=== PATIENT | male | born 1965 | race Caucasian/White ===

== ENCOUNTER 2019-06-24 14:31 | Outpatient (CLI) | payer MEDICARE, MEDICAID, SELFPAY ==
[2019-06-24 15:27] LABS: Basophils % 0.2 %; Eosinophils # 0.1 10^3/uL (0.0-0.8); Eosinophils % 1.2 %; Hematocrit 43.1 % (42.0-52.0); Hemoglobin 13.8 g/dL (11.7-16.6); Lymphocytes # 1.4 10^3/uL (0.8-4.8); Lymphocytes % 14.8 %; Mean Corpuscular Hemoglobin 27.8 pg (28.0-34.0); Mean Corpuscular Volume 86.7 fL (80-94); Mean Platelet Volume 10.4 fL (7.4-10.4); Monocytes # 0.9 10^3/uL (0.2-0.9); Monocytes % 8.8 %; Neutrophils # 7.2 10^3/uL (1.8-7.7); Neutrophils % 74.7 %; Nucleated Red Blood Cells % 0 %; Platelet Count 291 10^3/cmm (130-400); Red Blood Count 4.97 10^6/uL (4.1-5.3); Red Cell Distribution Width 15.7 % (12.1-15.1); White Blood Count 9.7 10^3/uL (4.0-10.0)
[2019-06-24 15:50] LABS: Carcinoembryonic Antigen 2.2 ng/mL (0.0-4.7)
[2019-06-24 16:01] LABS: Alanine Aminotransferase 7 U/L (0-41); Albumin Level 3.7 g/dL (3.5-5.2); Alkaline Phosphatase 137 IU/L (40-130); Anion Gap 12.9 (5-19); Aspartate Amino Transferase 12 U/L (0-40); Blood Urea Nitrogen 6 mg/dL (6-20); Calcium 9.3 mg/dL (8.5-10.5); Carbon Dioxide 30 mmol/L (22-29); Chloride 99 mmol/L (98-107); Globulin 3.7 g/dL (1.3-4.6); Glomerular Filtration Rate 117.5 mL/min (90-130); Glucose 101 mg/dL (65-115); Osmolality Calculated 284 mOsm/kg (285-295); Sodium 139 mmol/L (136-145); Total Bilirubin 0.4 mg/dL (0.15-1.2); Total Protein 7.4 g/dL (6.6-8.7)
[2019-06-24 16:13] LABS: Potassium 2.9 mmol/L (3.5-5.1)
--- NOTE | 2019-06-25 07:13 | ONC FU_ITS ---
Dr. Morel Patient Follow-Up Note Patient: Ady Bernardo Unit #: [id number]: 1965 Dicatated By: Ady Morel M.D.Date of Visit:June 24, 2019 Onc Med Follow-up/Prog Note Chief Complaint: Rectal cancer. History of Present Illness: This is a 54 year-old man with low-grade adenocarcinoma of the rectum, by clinical evaluation presumed to be stage IIIB (T3, N1, M0). He was diagnosed with a rectal adenocarcinoma when he was hospitalized with an acute left septic knee arthritis in May 2014. He had severe iron deficiency anemia and hematochezia. Colonoscopy on 05/19/2014 revealed a large pedunculated mass in the posterior wall of the rectum, located at 5 cm from the anal verge. The biopsy showed focal invasive low grade adenocarcinoma arising from the tubulovillous adenoma. A CT of the abdomen and pelvis on 05/16/2014 showed large irregular lesion within the lumen of the rectosigmoid, bronchiectatic changes in the right lower lobe of the lung with a nonspecific 1.6 cm nodule in the right lower lung with small bilateral pleural effusions. There was 2.1 cm simple cyst and additional smaller nonspecific liver lesions. He was first seen by Dr. Harp on 05/26/2014. His weight was stable, although constitutionally he was cachectic. He had a history of congenital lung disease. He never smoked, but continued to have significant ongoing pulmonary complications. Staging PET/CT was not feasible due to lack of medical insurance. CT of the chest showed numerous bilateral nonspecific pulmonary nodules up to 1.2 cm with prominent hilar lymphadenopathy. There was a 2.7 cm hepatic mass, radiographically felt to be probably hemangioma. The lung findings could have been the sequela of his prior lung complications. Colorectal surgery evaluation by Dr. Mora was performed. Endorectal ultrasound on 06/10/2014 was consistent with clinical stage at least III, uT3 uN1 disease with early T3 invasion and one possible enlarged lymph node. Neoadjuvant/ preoperative chemotherapy and radiation with infusional 5-FU for 6 weeks was delivered 06/24/14 -07/28/14. After 2 days of chemotherapy treatment he developed severe hypotension and supraventricular tachycardia requiring hospitalization. Autoimmune thyroiditis with TSH receptor antibodies was identified. Following that, his 5-FU dose was decreased by 20%. He was able to completed all scheduled doses. He completed radiation treatment to 5040 cGy on 08/05/2014. CT of the chest in August 2014 showed improved pulmonary nodules. He established care with green inspector in [place], Dr. Rivera. On 09/26/2014 he underwent an extended low anterior resection with diverting loop ileostomy by Dr. Mora. His surgical pathology showed a large rectal villous adenoma with severe dysplasia, negative margins. A total of 13 lymph nodes harvested were negative for metastatic disease. Thus, he achieved complete pathologic response following neoadjuvant concurrent chemoradiation, Stage 0 (ypT0, ypN0). He was seen in emergency room on 10/11/2014 for diffuse abdominal pain. A CT of abdomen and pelvis showed multiple hepatic cysts and several hemangiomas as well as bilateral bronchiectasis with just elbow pulmonary nodules. Given advanced staging upfront, adjuvant chemotherapy with FOLFOX regimen was recommended. Cycle 1 began on 12/03/14. The treatment was complicated with possible mucositis and burning sensation in the tongue, related to oxaliplatin. The patient received 3 doses of FOLFOX treatment from 12/03/2014 thru 12/31/2014. After that he absolutely declined further treatment. Port-A-Cath was removed, and he was then been followed on observation/expectant management. Surveillance CT of the chest, abdomen, and pelvis on 07/10/2015 showed no evidence of metastatic or recurrent disease. There was findings of COPD, stable hemangioma in the liver, and reversal of the right lower quadrant ostomy. He was last seen for a follow-up visit on 11/30/2015. He appeared stable clinically with no evidence of recurrence of the rectal cancer. 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 I don't have any of those records available. He had a lengthy hospitalization, and he spent 2 weeks at [facility] following discharge. He was able to return home with his sister on 06/30/2018. On 08/30/2018 he presented to the emergency room with shortness of breath, cough, and hemoptysis. CT pulmonary angiogram showed markedly abnormal appearance of the lungs suggestive of a chronic infectious process. There were no pulmonary emboli identified. There were multiple lesions in the liver, a portion of which were likely benign, but with the remainder being indeterminate. He was admitted to [facility] in [place], and he did improve with antibiotic therapy. He had further evaluation with contrast-enhanced CT evidence/pelvis on 10/23/2018. It showed multiple hepatic cavernous hemangiomas, appearance of which was unchanged compared to prior study from 2016. There was no evidence of metastatic disease. With those findings he continued on observation/expectant management. He is seen for a follow-up visit. He has continued regular follow-up care with the green inspector in [place]. He is scheduled to have a repeat chest CT at [facility] in [place] later this week. He has been feeling good generally. His energy has been okay. He says he has normal activity. ECOG score is 0. He has good appetite. He has not had fever. He does have some sweating at night, but that is not new. He has some shortness of breath, but he says his breathing is normal for him. He has constant cough productive of yellow to green sputum. He has not had chest pain or hemoptysis. He has no GI or complaints. He has no significant joint or bone pain. He does not complain of headache or dizziness. He does have numbness/tingling in his hands and feet. Medications: Aspirin 1 Tablet (of 81 mg) Oral daily, dilTIAZem HCl 1 Tablet (of 180 mg) Oral daily, Fludrocortisone Acetate 2 Tablet (of 0.1 mg) Oral daily, Gabapentin 1 Capsule (of 100 mg) Oral t.i.d., methIMAzole 0.5 Tablet (of 5 mg) Oral q 8 hours, Metoprolol Succinate ER 1 Tablet (of 25 mg) Tablet SR 24 HR Oral daily, ProAir HFA Aerosol, solution Inhalation PRN, Senna-S 1 Tablet (of 8.6-50 mg) Oral PRN, Symbicort 1 (160-4.5 mcg/act) Aerosol Inhalation daily Allergies: No Known Allergies. Review of Systems: Constitutional - His energy is OK. He says he has normal activity. His appetite is good. His weight is up a few more pounds. He has some sweating at night. No fever or chills. ECOG score is 0, ENMT - He has a little bit of sinus congestion/drainage. No mouth sores. No sore throat or difficulty swallowing, Hematologic/Lymphatic - He bruises easily, Respiratory - He has some shortness of breath. He has constant cough that produces yellow phlegm. No pleuritic pain or hemoptysis, Cardiovascular - No angina pain. No palpitations, Gastrointestinal - No nausea or vomiting. No heartburn or acid reflux. No diarrhea or constipation. No blood in the stool or black stools, Genitourinary (M) - No dysuria or hematuria. No urinary frequency. No urgency or incontinence, Musculoskeletal - No joint or bone pain, Integumentary - No skin complications, Neurologic - No headache or dizziness. He has numbness and tingling in his hands and feet, Psychiatric - No anxiety or depression. No insomnia. Vital Signs: Performed on June 24, 2019 15:43 Height - 71.00 in Weight - 137.2 lbs (HIGH) BSA - 1.80 sq.m BMI - 19.14 Temperature - 98.9 F (HIGH) Pulse - 64 /min Respiration - 18 /min BP - 163/96 mm(hg) (HIGH) O2 Sat - 97 % Pain - 0 Physical Examination: Constitutional - He looks pretty good generally, Eyes - Sclerae nonicteric. Conjunctivae clear, ENMT - No lesions noted in the oral cavity, Hematologic/Lymphatic - No cervical, clavicular, or axillary adenopathy, Respiratory - Lungs sound clear with diminished air movement bilaterally, Cardiovascular - Heart rhythm is regular. There is a II/ systolic murmur. There is no gallop or rub noted, Abdomen - Soft. Liver and spleen are not enlarged. There is no abdominal mass or ascites noted and there is no inguinal adenopathy, Extremities - No edema, Neurologic - No focal neurologic deficits noted. Lab/Imaging: Test performed on June 24, 2019 14:50 Sodium 139 mmol/L Potassium 2.9 mmol/L Chloride 99 mmol/L CO2 30 mmol/L Anion Gap 12.9 BUN 6 mg/dL Creatinine 0.7 mg/dL Cr Clearance (Est) 106.1900 mL/min eGFR 117.5 mL/min Glucose 101 mg/dL Calcium 9.3 mg/dL Protein, Total 7.4 g/dL Albumin 3.7 g/dL Globulin 3.7 g/dL Bilirubin, Total 0.4 mg/dL ALT (SGPT) 7 U/L AST (SGOT) 12 U/L Alkaline Phosphatase 137 IU/L WBC 9.7 10 3/uL RBC 4.97 10 6/uL HGB 13.8 g/dL HCT 43.1 % MCV 86.7 fL MCH 27.8 pg MCHC 32.0 g/dL RDW 15.7 % Platelet Count 291 10 3/cmm MPV 10.4 fL Neutrophils 7.2 10 3/uL Lymphocytes 1.4 10 3/uL Monocytes 0.9 10 3/uL Eosinophils 0.1 10 3/uL Basophils 0.0 10 3/uL Neutrophil % 74.7 % Lymphocyte % 14.8 % Monocyte % 8.8 % Eosinophil % 1.2 % Basophils % 0.2 % CEA 2.2 ng/mL Impression: 1. Patient with low-grade adenocarcinoma of the rectum, initially diagnosed in May 2014. By clinical evaluation, his disease was suspected to be stage IIIB (T3, N1, M0). 2. He was given neoadjuvant chemoradiation utilizing infusional 5-FU, completed on 08/05/2014 to a total radiation dose of 5040 cGy. 3. He underwent extended low anterior resection with diverting loop ileostomy on 09/26/2014. Pathology showed large villous adenoma with severe dysplasia and no invasive carcinoma, thus posttreatment stage 0 (ypT0, ypN0). 4. Postoperative adjuvant chemotherapy with modified FOLFOX was attempted and stopped by the patient after 3 cycles due to multiple toxicities. He has since had remained on observation/expectant management. His other medical illnesses include: 5. COPD of unclear etiology, as he is a nonsmoker and he had normal alpha-1 antitrypsin level. 6. He has multiple pulmonary nodules. 7. Autoimmune thyroiditis. 8. Hypertension. During follow-up he continued to have somewhat marginal performance status. 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 His clinical course there apparently was also complicated by epilepsy. He also had suspected cardiovascular disease. He had been showing gradual recovery, but in the meantime he was admitted to the hospital in August [address] pulmonary angiogram at that time showed markedly abnormal appearance of the lungs which was felt to be suggestive of a chronic infectious process. There was no evidence of metastatic disease. His CT abdomen/pelvis on 10/23/2018 also showed no evidence of metastatic disease. He had gradual recovery following his hospitalization in April and the subsequent illness in August. He has continued followup with a green inspector in [place]. Overall, he appears to be doing well clinically. Thus far there is been no evidence of recurrence of the rectal cancer. Plan: He continues on observation/expectant management. I will see him again with surveillance CT of the abdomen/pelvis in 6 months. Signed By: Ady Morel M.D. <<Signature on File>>
== END 2019-06-24 14:32 | disposition home or self-care (01) ==
PROVIDERS: PCP Family Medicine; Visit Provider Internal Medicine Medical Oncology
DX: C20 Malignant neoplasm of rectum (principal)
CPT/HCPCS: 36415; 80053; 82378; 85025; G0463

== ENCOUNTER 2019-12-17 10:59 | Emergency (ER) | payer OTHER, MEDICAID, SELFPAY ==
[2019-12-17] VITALS (11 sets, daily range): BP systolic 95–156; BP diastolic 63–104; PULSE 55–69; RESP 16–18; TEMP 36.8; O2SAT 97–100; BMI 22.1
--- NOTE | 2019-12-17 11:42 | XR_ITS ---
WS: [id number] Portable AP upright chest, 12/17/2019 Clinical Data: cough Comparison: PA and lateral chest, 08/30/2018. Findings: No nodules, masses or effusions are seen. There is a patchy opacity overlying the midportio n of the left diaphragm which could represent atelectasis or minimal pneumonia. The diaphragms are fl attened. There is right upper lobe scarring with pleural thickening unchanged. The heart is slightly enlarged The pulmonary vascularity is not increased. No pneumothorax is seen. XR/XR chest 1V portable [id number] Impression: 1. Minimal patchy opacity overlying the left diaphragm which could represent pn eumonia or atelectasis. 2. Cardiomegaly and hyperinflation.
--- NOTE | 2019-12-17 12:11 | ECG_ITS ---
[facility] Test Date: 2019-12-17 Pat Name: Ady Bernardo Department: Room: Gender: Male Ed Transporter: : 1965 Requested By: Salina Medeiros Order Number: [id number] Joanne MD: Mariah Castillo M.D. Measurements Intervals [place] Rate: 61 P: 85 ID: 160 QRS: 89 QRSD: 118 T: 74 QT: 422 QTc: 427 Interpretive Statements SINUS RHYTHM WITH SINUS ARRHYTHMIA MODERATE INTRAVENTRICULAR CONDUCTION DELAY [110+ ms QRS DURATION] Compared to ECG 01/26/2017 11:48:07 Intraventricular conduction delay now present Sinus tachycardia no longer present Ventricular premature complex(es) no longer present Atrial abnormality no longer present Electronically Signed On 12-17-2019 20:18:57 MAILROOM ASSISTANT by Mariah Castillo M.D. [id number]
--- NOTE | 2019-12-17 12:14 | CT_ITS ---
WS: [id number] CTA OF THE CHEST WITH PULMONARY EMBOLISM PROTOCOL TECHNIQUE: High-resolution contrast enhanced CTA of the chest with coronal and sagittal reformatted i mages with pulmonary embolism protocol. MIP images are also reviewed. CLINICAL INFORMATION: sob COMPARISON: CT November 13, 2018 DLP: 569.[address] scans at [facility] use at least one of these dose optimization techniques: automat ed exposure control; mA and/or kV adjustment per patient size (includes targeted exams where dose is matched to clinical indication); or iterative reconstruction. FINDINGS: Diffuse abnormal dilatation of the thoracic esophagus with air-fluid levels and high attenu ation presumed blood products. This is distended from the thoracic inlet to the GE junction. Focal na rrowing with peripheral nodular thickening at the GE junction. Heterogeneous blood products or soft t issue thickening involving the mid and distal esophagus suspicious for neoplasm. Recommend further ev aluation with endoscopy. Small amount of circumferential fluid involving the posterior mediastinum ab out the mid and distal esophagus suspicious for contained perforation. Moderate chronic emphysematous changes with periseptal emphysema. Proximal main pulmonary arteries ar e patent. Normal segmental and subsegmental pulmonary arteries. No evidence of pulmonary embolus. Diffuse mild bronchial wall thickening and bronchiectasis more prominent in the mid and lower lungs b ilaterally. Moderate periseptal emphysema with pleural and parenchymal fibrosis. This is similar to t prior examination. No acute pulmonary infiltrates. Right hepatic cyst measuring 4.6 x 4.6 CM. Additional low-attenuation lesion right hepatic lobe measu ring 2.7 cm appears stable since November 13, 2018. This is compatible with cavernous hemangioma on t he prior CT abdomen pelvis with contrast 019. Additional smaller hepatic cysts. CT/CT angio chest PE protcl [id number] IMPRESSION: 1. No evidence of pulmonary embolus. 2. Diffuse thickening with prominent dilatation of the thoracic esophagus with air-fluid levels. Blood products within the mid and distal esophagus with nodu lar thickening at the GE junction suspicious for neoplasm. Findings can be furt her evaluated with endoscopy. 3. Fluid about the mid and distal esophagus and at the GE junction suspicious for contained perforation. 4. Periseptal emphysematous change with diffuse bronchiectasis more prominent in the mid and lower lungs bilaterally. Scattered areas of fibrosis similar to the prior examination. 5. No acute-appearing pulmonary infiltrates. 6. Stable partially visualized hepatic cysts and right cavernous hemangioma. Notified Salina Medeiros MD at 12/17/2019 1:39 PM.
--- NOTE | 2019-12-17 12:23 | ED_ITS ---
HPI - General Adult General: Chief complaint: Nausea/Vomiting/Diarrhea Stated complaint: Coughing up blood Time Seen by Provider: 12/17/19 12:07 Source: patient Mode of arrival: ambulatory Limitations: no limitations History of Present Illness: HPI narrative: 54-year-old male who has a history of colon cancer is in remission. He also has history of COPD. He states that he started having a cough today and started having hemoptysis. Is mainly blood- streaked. Denies coughing up any clots. He denies any fever. He has had some slight shortness of breath. He denies any worsening or improving factors. Denies any abdominal pain. Associated symptoms: Deny chest pain, headache(s), nausea, rash or vomiting Review of Systems Const: Denies: fever(s), chills, body aches or change in appetite Eyes: Denies: blurry vision or eye discomfort ENMT: Denies: throat pain or dental pain Card: Denies: chest pain Resp: Reports: productive cough and hemoptysis GI: Denies: abdominal pain, nausea, vomiting or diarrhea : Denies: dysuria Musc: Denies: neck pain or back pain Skin/Breast: Denies: rash Neuro: Denies: headache(s) Psych: Denies: depression Trevon/Lymph: Denies: easy bruising All/Imm: Denies: urticaria PFSH ED PFSH: Medical History Adrenal insufficiency Atrial fibrillation COPD (chronic obstructive pulmonary disease) Essential hypertension GBS (Guillain [place] syndrome) H/O supraventricular tachycardia Rectal cancer Family History Mother Cancer Father Diabetes Other Hypertension Social History Smoking and tobacco status: never smoked Alcohol intake: never Marital status: Current occupational status: disabled Physical Exam Const: COMMON NORMALS: no acute distress and patient oriented x3 GENERAL APPEARANCE: ill appearing HENMT: COMMON NORMALS: normocephalic and atraumatic HEAD & SCALP: normocephalic and atraumatic Eye: COMMON NORMALS: Equal, round and reactive pupils present and EOMs intact bilaterally PUPIL: Yes Equal, round and reactive pupils present Neck/C-Spine: COMMON NORMALS: full ROM and supple Chest: COMMONS NORMALS: normal inspection of the chest and normal palpation of entire chest wall Resp: COMMON NORMALS: normal respiratory effort, No retractions, No use of accessory muscles and clear to auscultation bilaterally AUSCULTATION: clear to auscultation bilaterally Cardio: COMMON NORMALS: regular rate, regular rhythm and No murmurs present (Cardio) RATE: regular rate RHYTHM: regular rhythm GI: COMMON NORMALS: Normal to inspection, nondistended, normoactive bowel sounds present, Soft to palpation, non-tender and no masses PALPATION: Yes Soft to palpation Extremity: COMMON NORMALS: normal to inspection and full ROM Neuro: COMMON NORMALS: patient oriented x3, moves all extremities and no focal motor deficits Psych: COMMON NORMALS: mental status grossly normal, Normal thought process present and cooperative THOUGHT PROCESS: Normal thought process present Skin: COMMON NORMALS: no rashes or lesions noted and no wounds GENERAL SKIN EXAM: no rashes or lesions noted Course Vital Signs: Vital signs: Vital Signs Temperature 98.2 F 12/17/19 11:13 Pulse Rate 56 L 12/17/19 19:00 Respiratory Rate 16 12/17/19 19:00 Blood Pressure 100/63 12/17/19 19:00 Pulse Oximetry 100 12/17/19 19:00 MDM - General Adult MDM Narrative: Medical decision making narrative: Patient presents here with hematemesis. Patient did have one episode of large amount of vomiting blood here. CT scan showed possible esophageal cancer with contained perforation. He is no longer had any more vomiting here and his hemoglobin stable and he is hemodynamically stable as well. I spoke to CT surgeon at [facility] who is excepted patient there. Pending transfer awaiting for bed which could takes quite some time. Lab Data: Labs: Lab Results 12/17/19 12/17/19 12/17/19 Range/Units 12:40 12:40 12:40 WBC 8.6 (4.0-10.0) 10^3/ uL RBC 5.24 (4.1-5.3) 10^6/u L Hgb 15.4 (11.7-16.6) g/dL Hct 48.1 (42.0-52.0) % MCV 91.8 (80-94) fL MCH 29.4 (28.0-34.0) pg MCHC 32.0 (30.0-36.0) g/dL RDW 14.6 (12.1-15.1) % Plt Count 258 (130-400) 10^3/c mm MPV 10.2 (7.4-10.4) fL Neut % (Auto) 87.3 % Lymph % (Auto) 7.2 % Leake % (Auto) 2.9 % Eos % (Auto) 1.9 % Baso % (Auto) 0.2 % Neut # (Auto) 7.51 (1.8-7.7) 10^3/u L Lymph # (Auto) 0.6 L (0.8-4.8) 10^3/u L Leake # (Auto) 0.3 (0.2-0.9) 10^3/u L Eos # (Auto) 0.2 (0.0-0.8) 10^3/u L Baso # (Auto) 0.0 (0.0-0.1) 10^3/u L Nucleated RBC % (a uto) 0 % Nucleated RBCs # 0.0 /100WBC PT 13.40 (12.1-14.9) SECO NDS INR 0.99 (0.8-1.2) Sodium 138 (136-145) mmol/L Potassium 3.7 (3.5-5.1) mmol/L Chloride 101 (98-107) mmol/L Carbon Dioxide 28 (22-29) mmol/L Anion Gap 12.7 (5-19) BUN 7 (6-20) mg/dL Creatinine 0.8 (0.7-1.2) mg/dL GFR Calculation 100.7 (90-130) mL/min Glucose 97 (65-115) mg/dL Calculated Osmolal ity 284 L (285-295) mOsm/k g Calcium 9.0 (8.5-10.5) mg/dL Total Bilirubin 0.6 (0.15-1.2) mg/dL AST 13 (0-40) U/L ALT 8 (0-41) U/L Alkaline Phosphata se 149 H (40-130) IU/L Total Protein 7.5 (6.6-8.7) g/dL Albumin 4.2 (3.5-5.2) g/dL Globulin 3.3 (1.3-4.6) g/dL Blood Type Rho(D) Type Antibody Screen 12/17/19 12/17/19 Range/Units 13:50 16:35 WBC (4.0-10.0) 10^3/ uL RBC (4.1-5.3) 10^6/u L Hgb 14.5 (11.7-16.6) g/dL Hct 45.2 (42.0-52.0) % MCV (80-94) fL MCH (28.0-34.0) pg MCHC (30.0-36.0) g/dL RDW (12.1-15.1) % Plt Count (130-400) 10^3/c mm MPV (7.4-10.4) fL Neut % (Auto) % Lymph % (Auto) % Leake % (Auto) % Eos % (Auto) % Baso % (Auto) % Neut # (Auto) (1.8-7.7) 10^3/u L Lymph # (Auto) (0.8-4.8) 10^3/u L Leake # (Auto) (0.2-0.9) 10^3/u L Eos # (Auto) (0.0-0.8) 10^3/u L Baso # (Auto) (0.0-0.1) 10^3/u L Nucleated RBC % (a uto) % Nucleated RBCs # /100WBC PT (12.1-14.9) SECO NDS INR (0.8-1.2) Sodium (136-145) mmol/L Potassium (3.5-5.1) mmol/L Chloride (98-107) mmol/L Carbon Dioxide (22-29) mmol/L Anion Gap (5-19) BUN (6-20) mg/dL Creatinine (0.7-1.2) mg/dL GFR Calculation (90-130) mL/min Glucose (65-115) mg/dL Calculated Osmolal ity (285-295) mOsm/k g Calcium (8.5-10.5) mg/dL Total Bilirubin (0.15-1.2) mg/dL AST (0-40) U/L ALT (0-41) U/L Alkaline Phosphata se (40-130) IU/L Total Protein (6.6-8.7) g/dL Albumin (3.5-5.2) g/dL Globulin (1.3-4.6) g/dL Blood Type O Positive Rho(D) Type Positive Antibody Screen Negative Imaging Data^: CXR: Radiologist's impression: [address] [address] XRay Report Signed Patient: Ady Bernardo Unit #: [id number] : 1965 Age/Sex: 54 / M ADM Date: 12/17/19 Loc: ER Room/Bed: Attending Dr: Ordering Provider/Ordering MD: Salina Medeiros MD Date of Service: 12/17/19 Procedure(s): XR chest 1V portable [id number] Accession Number(s): [id number] Report Number: [id number] WS: [id number] Portable AP upright chest, 12/17/2019 Clinical Data: cough Comparison: PA and lateral chest, 08/30/2018. Findings: No nodules, masses or effusions are seen. There is a patchy opacity overlying the midportion of the left diaphragm which could represent atelectasis or minimal pneumonia. The diaphragms are flattened. There is right upper lobe scarring with pleural thickening unchanged. The heart is slightly enlarged The pulmonary vascularity is not increased. No p neumothorax is seen. XR/XR chest 1V portable [id number] Impression: 1. Minimal patchy opacity overlying the left diaphragm which could represent pneumonia or atelectasis. 2. Cardiomegaly and hyperinflation. CT Chest: Attestation: I personally reviewed and interpreted this imaging study as follows: Radiologist's impression: [address] [address] [address] Scan Report Signed Patient: Ady Bernardo Unit #: [id number] : 1965 Age/Sex: 54 / M ADM Date: 12/17/19 Loc: ER Room/Bed: Attending Dr: Ordering Provider/Ordering MD: Salina Medeiros MD Date of Service: 12/17/19 Procedure(s): CT angio chest PE protcl [id number] Accession Number(s): [id number] Report Number: [id number] WS: [id number] CTA OF THE CHEST WITH PULMONARY EMBOLISM PROTOCOL TECHNIQUE: High-resolution contrast enhanced CTA of the chest with coronal and sagittal reformatted images with pulmonary embolism protocol. MIP images are also reviewed. CLINICAL INFORMATION: sob COMPARISON: CT November 13, 2018 DLP: 569.[address] scans at [facility] use at least one of these dose optimization techniques: automated exposure control; mA and/or kV adjustment per patient size (includes targeted exams where dose is matched to clinical indication); or iterative reconstruction. FINDINGS: Diffuse abnormal dilatation of the thoracic esophagus with air-fluid levels and high attenuation presumed blood products. This is distended from the thoracic inlet to the GE junction. Focal narrowing with peripheral nodular thickening at the GE junction. H eterogeneous blood products or soft tissue thickening involving the mid and distal esophagus suspicious for neoplasm. Recommend further evaluation with endoscopy. Small amount of circumferential fluid involving the posterior mediastinum about the mid and distal esophagus suspicious for contained perforation. Moderate chronic emphysematous changes with periseptal emphysema. Proximal main pulmonary arteries are patent. Normal segmental and subsegmental pulmonary arteries. No evidence of pulmonary embolus. Diffuse mild bronchial wall thickening and bronchiectasis more prominent in the mid and lower lungs bilaterally. Moderate periseptal emphysema with pleural and parenchymal fibrosis. This is similar to the prior examination. No acute pulmonary infiltrates. Right hepatic cyst measuring 4.6 x 4.6 CM. Additional low-attenuation lesion right hepatic lobe measuring 2.7 cm appears stable since November 13, 2018. This is compatible with cavernous hemangioma on the prior CT abdomen pelvis with contrast . Additional smaller hepatic cysts. CT/CT angio chest PE protcl [id number] IMPRESSION: 1. No evidence of pulmonary embolus. 2. Diffuse thickening with prominent dilatation of the thoracic esophagus with air-fluid levels. Blood products within the mid and distal esophagus with nodular thickening at the GE junction suspicious for neoplasm. Findings can be further evaluated with endoscopy. 3. Fluid about the mid and distal esophagus and at the GE junction suspicious for contained perforation. 4. Periseptal emphysematous change with diffuse bronchiectasis more prominent in the mid and lower lungs bilaterally. Scattered areas of fibrosis similar to the prior examination. 5. No acute-appearing pulmonary infiltrates. 6. Stable partially visualized hepatic cysts and right cavernous hemangioma. EKG Data^: EKG 1: Attestation: I personally reviewed and interpreted this EKG as follows: EKG interpretation date: 12/17/19 EKG interpretation time: 12:40 Interpretation: nsr hr [address] or t wave abnormalities qrs 118 qtc 425 Computer generated interpretation: Chest X-Ray 12/17/19 11:42 Impression: 1. Minimal patchy opacity overlying the left diaphragm which could represent pneumonia or atelectasis. 2. Cardiomegaly and hyperinflation. Chest CTA 12/17/19 12:14 IMPRESSION: 1. No evidence of pulmonary embolus. 2. Diffuse thickening with prominent dilatation of the thoracic esophagus with air-fluid levels. Blood products within the mid and distal esophagus with nodular thickening at the GE junction suspicious for neoplasm. Findings can be further evaluated with endoscopy. 3. Fluid about the mid and distal esophagus and at the GE junction suspicious for contained perforation. 4. Periseptal emphysematous change with diffuse bronchiectasis more prominent in the mid and lower lungs bilaterally. Scattered areas of fibrosis similar to the prior examination. 5. No acute-appearing pulmonary infiltrates. 6. Stable partially visualized hepatic cysts and right cavernous hemangioma. Notified Salina Medeiros MD at 12/17/2019 1:39 PM. Critical Care Time Critical Care Time: Critical Care Time: Yes Total Critical Care Time: 35 Attestation: This case had a high probability of a clinically significant, sudden, or life t hreatening deterioration of this patient's condition which required my full and direct attention, intervention and personal management. Discharge Plan Discharge Patient Disposition: Xfer Other Clinical Impression: Hematemesis Condition: Stable Discharge Orders: Transfer Out of Facility (Order); Ordered 12/17/19 Ordered By: Salina Medeiros Referrals: Nellie Kay MD [Primary Care Provider] - Coding Level of Care Code ED Film Inspector for Chg Fwd Exam Comprehensive
[2019-12-17] MEDS: iohexol 350 mg/mL 100 mL Btl IV (13:09)
[2019-12-17 13:26] LABS: Basophils % 0.2 %; Eosinophils # 0.2 10^3/uL (0.0-0.8); Eosinophils % 1.9 %; Hematocrit 48.1 % (42.0-52.0); Hemoglobin 15.4 g/dL (11.7-16.6); Lymphocytes # 0.6 10^3/uL (0.8-4.8); Lymphocytes % 7.2 %; Mean Corpuscular Hemoglobin 29.4 pg (28.0-34.0); Mean Corpuscular Volume 91.8 fL (80-94); Mean Platelet Volume 10.2 fL (7.4-10.4); Monocytes # 0.3 10^3/uL (0.2-0.9); Monocytes % 2.9 %; Neutrophils # 7.51 10^3/uL (1.8-7.7); Neutrophils % 87.3 %; Nucleated Red Blood Cells % 0 %; Platelet Count 258 10^3/cmm (130-400); Red Blood Count 5.24 10^6/uL (4.1-5.3); Red Cell Distribution Width 14.6 % (12.1-15.1); White Blood Count 8.6 10^3/uL (4.0-10.0)
[2019-12-17] MEDS: ondansetron 2 mg/ML SDV 2 mL 4 MG IVP (13:34)
[2019-12-17 13:48] LABS: INR 0.99 (0.8-1.2)
[2019-12-17 13:55] LABS: Alanine Aminotransferase 8 U/L (0-41); Albumin Level 4.2 g/dL (3.5-5.2); Alkaline Phosphatase 149 IU/L (40-130); Anion Gap 12.7 (5-19); Aspartate Amino Transferase 13 U/L (0-40); Blood Urea Nitrogen 7 mg/dL (6-20); Carbon Dioxide 28 mmol/L (22-29); Chloride 101 mmol/L (98-107); Globulin 3.3 g/dL (1.3-4.6); Glomerular Filtration Rate 100.7 mL/min (90-130); Glucose 97 mg/dL (65-115); Osmolality Calculated 284 mOsm/kg (285-295); Potassium 3.7 mmol/L (3.5-5.1); Sodium 138 mmol/L (136-145); Total Bilirubin 0.6 mg/dL (0.15-1.2); Total Protein 7.5 g/dL (6.6-8.7)
[2019-12-17] MEDS: pantoprazole 40 mg SDV 80 MG IVP (14:04)
[2019-12-17] MEDS: pantoprazole 40 MG in sodium chloride 0.9% (plus) 100 ML 20 MG IV ×2 (14:04→18:40)
[2019-12-17] MEDS: ipratropium-albuterol 3 mL Neb INHALATION (15:12)
[2019-12-17] MEDS: diphenhydrAMINE 50 mg/mL SDV 1mL IVP (16:38)
[2019-12-17] MEDS: metoclopramide 5 mg/mL SDV 2 mL 10 MG IVP (16:38)
[2019-12-17 16:42] LABS: Hematocrit 45.2 % (42.0-52.0); Hemoglobin 14.5 g/dL (11.7-16.6)
[2019-12-17 23:47] LABS: Hematocrit 42.2 % (42.0-52.0); Hemoglobin 13.6 g/dL (11.7-16.6)
[2019-12-17] MEDS: piperacillin-tazobactam 3.375 GM in sodium chloride 0.9% (plus) 50 ML IV (23:53)
[2019-12-18] VITALS (9 sets, daily range): BP systolic 96–148; BP diastolic 59–89; PULSE 47–99; RESP 15–21; O2SAT 98–100
[2019-12-18] MEDS: piperacillin-tazobactam 3.375 GM in sodium chloride 0.9% (plus) 50 ML IV (06:24)
[2019-12-18] MEDS: pantoprazole 40 MG in sodium chloride 0.9% (plus) 100 ML 20 MG IV (06:36)
[2019-12-18 08:54] LABS: Basophils % 0.1 %; Hematocrit 42.5 % (42.0-52.0); Hemoglobin 13.6 g/dL (11.7-16.6); Lymphocytes # 0.8 10^3/uL (0.8-4.8); Lymphocytes % 8.2 %; Mean Corpuscular Hemoglobin 30.1 pg (28.0-34.0); Monocytes # 0.4 10^3/uL (0.2-0.9); Monocytes % 3.9 %; Neutrophils # 8.36 10^3/uL (1.8-7.7); Neutrophils % 87.4 %; Nucleated Red Blood Cells % 0 %; Platelet Count 278 10^3/cmm (130-400); Red Blood Count 4.52 10^6/uL (4.1-5.3); Red Cell Distribution Width 14.7 % (12.1-15.1); White Blood Count 9.6 10^3/uL (4.0-10.0)
== END 2019-12-18 08:35 | disposition other institution (70) ==
PROVIDERS: Emergency Medicine; Emergency Provider Emergency Medicine; PCP Family Medicine
DX: K92.0 Hematemesis (principal); I48.91 Unspecified atrial fibrillation; J44.9 Chronic obstructive pulmonary disease, unspecified; I10 Essential (primary) hypertension; Z85.048 Personal history of other malignant neoplasm of rectum, rectosigmoid junction, and anus
CPT/HCPCS: 12345; 71045; 71275; 80053; 85014; 85018; 85025; 85610; 86850; 86900; 93005; 94640; 96365; 96366; 96367; 96375; 99284; 99285; C9113; J1200; J2405; J2543; J2765; J2930; Q9967

== ENCOUNTER 2019-12-31 08:27 | Outpatient (CLI) | payer MEDICARE, MEDICAID, SELFPAY ==
--- NOTE | 2019-12-31 08:30 | CT_ITS ---
WS: [id number] Exam: CT abdomen pelvis w con* [id number] Date/Time of Exam: 12/31/2019 8:30 AM Reason For Exam: RECTAL CANCER DLP: 1049.[address] scans at [facility] use at least one of these dose optimization techniques: automat ed exposure control; mA and/or kV adjustment per patient size (includes targeted exams where dose is matched to clinical indication); or iterative reconstruction. Compared to prior study 10/23/2018. Lower lobe emphysematous changes and bronchiectasis noted. There may be some infiltrate in the left l ower lobe and/or atelectasis. Mild cardiac enlargement. A 5.6 cm cyst is noted in the right lobe of t he liver which is slightly more prominent than noted on the previous exam. There are also several sta ble appearing hepatic hemangiomas identified. Additional smaller cysts are seen in the left lobe of t he liver. The spleen and pancreas appear normal. The abdominal aorta is normal in caliber. The stomac h is unremarkable. Normal kidneys and adrenal glands. The portal vein and IVC are patent. No lymphade nopathy. No calcified stones in the gallbladder. Small bowel loops are normal in caliber. No sign of acute appendix. The remaining large bowel is unremarkable. No mass or adenopathy in the pelvis. The u reters are patent into the bladder. The urinary bladder is unremarkable as visualized. No destructive bone lesions. No significant abdominal wall defects. CT/CT abdomen pelvis w con* [id number] IMPRESSION: 1. No new abdominal mass or lymphadenopathy. 2. Stable appearing hepatic hemangiomas and cysts. 3. Lower lobe emphysematous changes and bronchiectasis most marked in the left lower lobe. There may be some infiltrate in the left lower lobe.
[2019-12-31] MEDS: iohexol 300 mg/mL 50 mL Btl PO (08:42)
[2019-12-31] MEDS: iohexol 300 mg/mL 100 mL Btl IV (10:06)
== END 2019-12-31 08:28 | disposition home or self-care (01) ==
PROVIDERS: PCP Family Medicine; Visit Provider Internal Medicine Medical Oncology
DX: C20 Malignant neoplasm of rectum (principal); D18.09 Hemangioma of other sites; J47.9 Bronchiectasis, uncomplicated
CPT/HCPCS: 74177; Q9967

== ENCOUNTER 2020-01-02 12:13 | Outpatient (CLI) | payer MEDICARE, MEDICAID, SELFPAY ==
[2020-01-02 13:10] LABS: Basophils % 0.2 %; Eosinophils # 0.4 10^3/uL (0.0-0.8); Eosinophils % 2.9 %; Hematocrit 43.5 % (42.0-52.0); Hemoglobin 14.1 g/dL (11.7-16.6); Lymphocytes # 0.8 10^3/uL (0.8-4.8); Lymphocytes % 6.2 %; Mean Corpuscular HGB Conc 32.4 g/dL (30.0-36.0); Mean Corpuscular Hemoglobin 29.8 pg (28.0-34.0); Mean Platelet Volume 9.8 fL (7.4-10.4); Monocytes # 0.7 10^3/uL (0.2-0.9); Monocytes % 5.8 %; Neutrophils # 10.28 10^3/uL (1.8-7.7); Neutrophils % 84.5 %; Nucleated Red Blood Cells % 0 %; Platelet Count 207 10^3/cmm (130-400); Red Blood Count 4.73 10^6/uL (4.1-5.3); Red Cell Distribution Width 14.4 % (12.1-15.1); White Blood Count 12.2 10^3/uL (4.0-10.0)
[2020-01-02 13:53] LABS: Carcinoembryonic Antigen 1.9 ng/mL (0.0-4.7)
[2020-01-02 14:14] LABS: Alanine Aminotransferase 8 U/L (0-41); Albumin Level 3.9 g/dL (3.5-5.2); Alkaline Phosphatase 132 IU/L (40-130); Anion Gap 14.1 (5-19); Aspartate Amino Transferase 11 U/L (0-40); Blood Urea Nitrogen 3 mg/dL (6-20); Calcium 8.6 mg/dL (8.5-10.5); Carbon Dioxide 25 mmol/L (22-29); Chloride 104 mmol/L (98-107); Globulin 2.8 g/dL (1.3-4.6); Glomerular Filtration Rate 117.5 mL/min (90-130); Glucose 86 mg/dL (65-115); Osmolality Calculated 286 mOsm/kg (285-295); Potassium 3.1 mmol/L (3.5-5.1); Sodium 140 mmol/L (136-145); Total Bilirubin 0.5 mg/dL (0.15-1.2); Total Protein 6.7 g/dL (6.6-8.7)
--- NOTE | 2020-01-05 13:35 | ONC FU_ITS ---
Dr. Morel Patient Follow-Up Note Patient: Ady Bernardo Unit #: [id number]: [id number] Dicatated By: Ady Morel M.D.Date of Visit:Jan 02, 2020 Onc Med Follow-up/Prog Note Chief Complaint: Rectal cancer. History of Present Illness: This is a 54 year-old man with low-grade adenocarcinoma of the rectum, by clinical evaluation presumed to be stage IIIB (T3, N1, M0). He was diagnosed with a rectal adenocarcinoma when he was hospitalized with an acute left septic knee arthritis in May 2014. He had severe iron deficiency anemia and hematochezia. Colonoscopy on 05/19/2014 revealed a large pedunculated mass in the posterior wall of the rectum, located at 5 cm from the anal verge. The biopsy showed focal invasive low grade adenocarcinoma arising from the tubulovillous adenoma. A CT of the abdomen and pelvis on 05/16/2014 showed large irregular lesion within the lumen of the rectosigmoid, bronchiectatic changes in the right lower lobe of the lung with a nonspecific 1.6 cm nodule in the right lower lung with small bilateral pleural effusions. There was 2.1 cm simple cyst and additional smaller nonspecific liver lesions. He was first seen by Dr. Harp on 05/26/2014. His weight was stable, although constitutionally he was cachectic. He had a history of congenital lung disease. He never smoked, but continued to have significant ongoing pulmonary complications. Staging PET/CT was not feasible due to lack of medical insurance. CT of the chest showed numerous bilateral nonspecific pulmonary nodules up to 1.2 cm with prominent hilar lymphadenopathy. There was a 2.7 cm hepatic mass, radiographically felt to be probably hemangioma. The lung findings could have been the sequela of his prior lung complications. Colorectal surgery evaluation by Dr. Mora was performed. Endorectal ultrasound on 06/10/2014 was consistent with clinical stage at least III, uT3 uN1 disease with early T3 invasion and one possible enlarged lymph node. Neoadjuvant/ preoperative chemotherapy and radiation with infusional 5-FU for 6 weeks was delivered 06/24/14 -07/28/14. After 2 days of chemotherapy treatment he developed severe hypotension and supraventricular tachycardia requiring hospitalization. Autoimmune thyroiditis with TSH receptor antibodies was identified. Following that, his 5-FU dose was decreased by 20%. He was able to completed all scheduled doses. He completed radiation treatment to 5040 cGy on 08/05/2014. CT of the chest in August 2014 showed improved pulmonary nodules. He established care with [facility] in [place], Dr. Rivera. On 09/26/2014 he underwent an extended low anterior resection with diverting loop ileostomy by Dr. Mora. His surgical pathology showed a large rectal villous adenoma with severe dysplasia, negative margins. A total of 13 lymph nodes harvested were negative for metastatic disease. Thus, he achieved complete pathologic response following neoadjuvant concurrent chemoradiation, Stage 0 (ypT0, ypN0). He was seen in emergency room on 10/11/2014 for diffuse abdominal pain. A CT of abdomen and pelvis showed multiple hepatic cysts and several hemangiomas as well as bilateral bronchiectasis with just elbow pulmonary nodules. Given advanced staging upfront, adjuvant chemotherapy with FOLFOX regimen was recommended. Cycle 1 began on 12/03/14. The treatment was complicated with possible mucositis and burning sensation in the tongue, related to oxaliplatin. The patient received 3 doses of FOLFOX treatment from 12/03/2014 thru 12/31/2014. After that he absolutely declined further treatment. Port-A-Cath was removed, and he was then been followed on observation/expectant management. Surveillance CT of the chest, abdomen, and pelvis on 07/10/2015 showed no evidence of metastatic or recurrent disease. There was findings of COPD, stable hemangioma in the liver, and reversal of the right lower quadrant ostomy. He was last seen for a follow-up visit on 11/30/2015. He appeared stable clinically with no evidence of recurrence of the rectal cancer. 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 I don't have any of those records available. He had a lengthy hospitalization, and he spent 2 weeks at [facility] following discharge. He was able to return home with his sister on 06/30/2018. On 08/30/2018 he presented to the emergency room with shortness of breath, cough, and hemoptysis. CT pulmonary angiogram showed markedly abnormal appearance of the lungs suggestive of a chronic infectious process. There were no pulmonary emboli identified. There were multiple lesions in the liver, a portion of which were likely benign, but with the remainder being indeterminate. He was admitted to [facility] in [place], and he did improve with antibiotic therapy. He had further evaluation with contrast-enhanced CT evidence/pelvis on 10/23/2018. It showed multiple hepatic cavernous hemangiomas, appearance of which was unchanged compared to prior study from 2016. There was no evidence of metastatic disease. With those findings he continued on observation/expectant management. On 12/17/2019 he presented to the emergency room with hematemesis. His CT pulmonary angiogram showed no evidence for pulmonary embolus. There were periseptal emphysematous changes with diffuse bronchiectasis more prominent in the mid and lower lungs bilaterally. Scattered areas of fibrosis appeared similar to a prior study from November 2018. That study showed diffuse thickening with prominent dilatation of the thoracic esophagus with air-fluid levels. Blood products were noted within the mid and distal esophagus with nodular thickening at the GE junction, suspicious for neoplasm. Fluid about the mid and distal esophagus and at the GE junction was suspicious for contained perforation. Partially visualized hepatic cyst and right cavernous hemangioma appeared stable. He was transferred to [facility] for admission, where he apparently was found to have a tear in his esophagus. He improved on conservative management. His CT abdomen/pelvis on 12/31/2019 showed lower lobe emphysematous changes and bronchiectasis. There is possible infiltrate in the left lower lobe and/or atelectasis. A 5.6 cm cyst in the right lobe of the liver appeared slightly more prominent. Several hepatic hemangiomas appeared stable and additional smaller cysts in the left lobe of the liver also appeared stable. The stomach was noted to be unremarkable. There is no new abdominal mass or lymphadenopathy identified. He is seen for a follow-up visit. He has been showing gradual recovery following his recent illness/hospitalization. He said he had a follow-up visit in [place] yesterday, and it was noted that his esophagus was healing. He says his energy has been okay and his activity has otherwise been normal for him. He does not have good appetite, but he has gained weight. He has not had fever. He has a little bit of night sweating. He says his breathing is like normal. He does get short of breath with activity. He complains of having cough all the time. He has not been having chest pain. He currently he has no GI or complaints. He has no significant joint or bone pain. He has numbness/tingling in his hands and feet. Medications: Aspirin 1 Tablet (of 81 mg) Oral daily, dilTIAZem HCl 1 Tablet (of 180 mg) Oral daily, Fludrocortisone Acetate 2 Tablet (of 0.1 mg) Oral daily, Gabapentin 1 Capsule (of 100 mg) Oral t.i.d., methIMAzole 0.5 Tablet (of 5 mg) Oral q 8 hours, Metoprolol Succinate ER 1 Tablet (of 25 mg) Tablet SR 24 HR Oral daily, ProAir HFA Aerosol, solution Inhalation PRN, Senna-S 1 Tablet (of 8.6-50 mg) Oral PRN, Symbicort 1 (160-4.5 mcg/act) Aerosol Inhalation daily Allergies: No Known Allergies. Review of Systems: Constitutional - His energy is been okay. He has normal activity. Appetite has not been that good, but he has gained weight. He has not had fever. He has a little bit of night sweating. ECOG score is 0, ENMT - He has his usual sinus congestion/drainage. No mouth sores. No sore throat or difficulty swallowing, Hematologic/Lymphatic - He has easy bruising. He recently was hospitalized with GI bleeding, Respiratory - He has shortness of breath, but his breathing is about like normal. He has cough all the time. No pleuritic pain or hemoptysis, Cardiovascular - No angina pain. No palpitations, Gastrointestinal - He was recently spit up blood. He was hospitalized at [facility] where he was found to have a tear in his esophagus. He had a follow-up there yesterday and he was told that it is healing. No nausea or vomiting. No heartburn or acid reflux. No diarrhea or constipation. No blood in the stool or black stools, Genitourinary (M) - No dysuria or hematuria. No urinary frequency. No urgency or incontinence, Musculoskeletal - No joint or bone pain, Integumentary - No skin rash, Neurologic - No headache or dizziness. He has numbness/tingling in his hands and feet. No other focal neurologic symptoms, Psychiatric - No anxiety or depression. No insomnia. Vital Signs: Performed on Jan 02, 2020 13:31 Height - 71.00 in Weight - 151.0 lbs (HIGH) BSA - 1.87 sq.m BMI - 21.06 Temperature - 98.9 F (HIGH) Pulse - 78 /min Respiration - 18 /min BP - 163/97 mm(hg) (HIGH) O2 Sat - 97 % Pain - 0 Physical Examination: Constitutional - He looks pretty good generally, Eyes - Sclerae nonicteric. Conjunctivae clear, ENMT - No lesions noted in the oral cavity, Hematologic/Lymphatic - No cervical, clavicular, or axillary adenopathy, Respiratory - Lungs sound clear with diminished air movement bilaterally, Cardiovascular - Heart rhythm is regular. There is a II/ systolic murmur. There is no gallop or rub noted, Abdomen - Soft. Liver and spleen are not enlarged. There is no abdominal mass or ascites noted and there is no inguinal adenopathy, Extremities - No edema, Neurologic - No focal neurologic deficits noted. Lab/Imaging: Test performed on Jan 02, 2020 12:25 Sodium 140 mmol/L Potassium 3.1 mmol/L Chloride 104 mmol/L CO2 25 mmol/L Anion Gap 14.1 BUN 3 mg/dL Creatinine 0.7 mg/dL Cr Clearance (Est) 116.8700 mL/min eGFR 117.5 mL/min Glucose 86 mg/dL Osmolality - Calculated 286 mOsm/kg Calcium 8.6 mg/dL Protein, Total 6.7 g/dL Albumin 3.9 g/dL Globulin 2.8 g/dL Bilirubin, Total 0.5 mg/dL ALT (SGPT) 8 U/L AST (SGOT) 11 U/L Alkaline Phosphatase 132 IU/L WBC 12.2 10 3/uL RBC 4.73 10 6/uL HGB 14.1 g/dL HCT 43.5 % MCV 92.0 fL MCH 29.8 pg MCHC 32.4 g/dL RDW 14.4 % Platelet Count 207 10 3/cmm MPV 9.8 fL Neutrophils 10.28 10 3/uL Lymphocytes 0.8 10 3/uL Monocytes 0.7 10 3/uL Eosinophils 0.4 10 3/uL Basophils 0.0 10 3/uL Neutrophil % 84.5 % Lymphocyte % 6.2 % Monocyte % 5.8 % Eosinophil % 2.9 % Basophils % 0.2 % NRBC % 0 % CEA 1.9 ng/mL Impression: 1. Patient with low-grade adenocarcinoma of the rectum, initially diagnosed in May 2014. By clinical evaluation, his disease was suspected to be stage IIIB (T3, N1, M0). 2. He was given neoadjuvant chemoradiation utilizing infusional 5-FU, completed on 08/05/2014 to a total radiation dose of 5040 cGy. 3. He underwent extended low anterior resection with diverting loop ileostomy on 09/26/2014. Pathology showed large villous adenoma with severe dysplasia and no invasive carcinoma, thus posttreatment stage 0 (ypT0, ypN0). 4. Postoperative adjuvant chemotherapy with modified FOLFOX was attempted and stopped by the patient after 3 cycles due to multiple toxicities. He has since had remained on observation/expectant management. His other medical illnesses include: 5. COPD of unclear etiology, as he is a nonsmoker and he had normal alpha-1 antitrypsin level. 6. He has multiple pulmonary nodules. 7. Autoimmune thyroiditis. 8. Hypertension. During follow-up he continued to have somewhat marginal performance status. 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 His clinical course there apparently was also complicated by epilepsy. He also had suspected cardiovascular disease. He had been showing gradual recovery, but in the meantime he was admitted to the hospital in August [address] pulmonary angiogram at that time showed markedly abnormal appearance of the lungs which was felt to be suggestive of a chronic infectious process. There was no evidence of metastatic disease. His CT abdomen/pelvis on 10/23/2018 also showed no evidence of metastatic disease. He has since then continued followup with a superintendent warehouse in [place]. On 12/17/2019 he was admitted to [facility] after presenting to the emergency room with hematemesis. He apparently was found to have a tear in his esophagus, but it has been getting better with conservative management. His recent evaluation has included CT pulmonary angiogram and CT abdomen/pelvis, which continue to show no evidence of recurrence of his rectal cancer. He is now 5 years out from completion of his adjuvant chemotherapy. Plan: He remains on observation/expectant management for the rectal cancer. I will see him again in one year. Signed By: Ady Morel M.D. <<Signature on File>>
== END 2020-01-02 12:14 | disposition home or self-care (01) ==
LOC: ONCMED 12:17
PROVIDERS: PCP Family Medicine; Visit Provider Internal Medicine Medical Oncology
DX: Z08 Encounter for follow-up examination after completed treatment for malignant neoplasm (principal); Z85.048 Personal history of other malignant neoplasm of rectum, rectosigmoid junction, and anus; K22.3 Perforation of esophagus; J44.9 Chronic obstructive pulmonary disease, unspecified; R91.8 Other nonspecific abnormal finding of lung field; E06.3 Autoimmune thyroiditis; I10 Essential (primary) hypertension; Z92.3 Personal history of irradiation; Z92.21 Personal history of antineoplastic chemotherapy
CPT/HCPCS: 36415; 80053; 82378; 85025; G0463

== ENCOUNTER 2021-05-03 08:04 | Outpatient (CLI) | payer MEDICARE, MEDICAID, SELFPAY ==
[2021-05-03 08:31] LABS: Basophils % 0.4 %; Eosinophils # 0.6 10^3/uL (0.0-0.8); Eosinophils % 8.7 %; Hematocrit 43.7 % (42.0-52.0); Hemoglobin 14.2 g/dL (11.7-16.6); Lymphocytes # 1.9 10^3/uL (0.8-4.8); Lymphocytes % 27.7 %; Mean Corpuscular HGB Conc 32.5 g/dL (30.0-36.0); Mean Corpuscular Hemoglobin 28.5 pg (28.0-34.0); Mean Corpuscular Volume 87.6 fl (80-94); Mean Platelet Volume 9.2 fL (7.4-10.4); Monocytes # 0.6 10^3/uL (0.2-0.9); Monocytes % 8.6 %; Neutrophils # 3.66 10^3/uL (1.8-7.7); Neutrophils % 54.2 %; Nucleated Red Blood Cells % 0 %; Platelet Count 310 10^3/cmm (130-400); Red Blood Count 4.99 10^6/uL (4.1-5.3); Red Cell Distribution Width 15.3 % (12.1-15.1); White Blood Count 6.8 10^3/uL (4.0-10.0)
[2021-05-03 08:59] LABS: Carcinoembryonic Antigen 1.9 ng/mL (0.0-4.7)
[2021-05-03 09:15] LABS: Alanine Aminotransferase 8 U/L (0-41); Albumin Level 4.1 g/dL (3.5-5.2); Aspartate Amino Transferase 11 U/L (0-40); Blood Urea Nitrogen 6 mg/dL (6-20); Calcium 9.1 mg/dL (8.5-10.5); Carbon Dioxide 27 mmol/L (22-29); Globulin 3.1 g/dL (1.3-4.6); Glucose 93 mg/dL (65-115); Total Bilirubin 0.3 mg/dL (0.15-1.2); Total Protein 7.2 g/dL (6.6-8.7)
[2021-05-03 09:45] LABS: Chloride 102 mmol/L (98-107); Osmolality Calculated 287 mOsm/kg (285-295); Sodium 140 mmol/L (136-145)
[2021-05-03 10:08] LABS: Alkaline Phosphatase 141 IU/L (40-130); Anion Gap 13.8 (5-19); Potassium 2.8 mmol/L (3.5-5.1)
--- NOTE | 2021-05-07 16:31 | ONC FU_ITS ---
Dr. Morel Patient Follow-Up Note Patient: Ady Bernardo Unit #: [id number]: 1965 Dicatated By: Ady Morel M.D.Date of Visit:May 03, 2021 Onc Med Follow-up/Prog Note Chief Complaint: Rectal cancer. History of Present Illness: This is a 56 year-old man with low-grade adenocarcinoma of the rectum, by clinical evaluation presumed to be stage IIIB (T3, N1, M0). He was diagnosed with a rectal adenocarcinoma when he was hospitalized with an acute left septic knee arthritis in May 2014. He had severe iron deficiency anemia and hematochezia. Colonoscopy on 05/19/2014 revealed a large pedunculated mass in the posterior wall of the rectum, located at 5 cm from the anal verge. The biopsy showed focal invasive low grade adenocarcinoma arising from the tubulovillous adenoma. A CT of the abdomen and pelvis on 05/16/2014 showed large irregular lesion within the lumen of the rectosigmoid, bronchiectatic changes in the right lower lobe of the lung with a nonspecific 1.6 cm nodule in the right lower lung with small bilateral pleural effusions. There was 2.1 cm simple cyst and additional smaller nonspecific liver lesions. He was first seen by Dr. Harp on 05/26/2014. His weight was stable, although constitutionally he was cachectic. He had a history of congenital lung disease. He never smoked, but continued to have significant ongoing pulmonary complications. Staging PET/CT was not feasible due to lack of medical insurance. CT of the chest showed numerous bilateral nonspecific pulmonary nodules up to 1.2 cm with prominent hilar lymphadenopathy. There was a 2.7 cm hepatic mass, radiographically felt to be probably hemangioma. The lung findings could have been the sequela of his prior lung complications. Colorectal surgery evaluation by Dr. Mora was performed. Endorectal ultrasound on 06/10/2014 was consistent with clinical stage at least III, uT3 uN1 disease with early T3 invasion and one possible enlarged lymph node. Neoadjuvant/ preoperative chemotherapy and radiation with infusional 5-FU for 6 weeks was delivered 06/24/14 -07/28/14. After 2 days of chemotherapy treatment he developed severe hypotension and supraventricular tachycardia requiring hospitalization. Autoimmune thyroiditis with TSH receptor antibodies was identified. Following that, his 5-FU dose was decreased by 20%. He was able to completed all scheduled doses. He completed radiation treatment to 5040 cGy on 08/05/2014. CT of the chest in August 2014 showed improved pulmonary nodules. He established care with portfolio analyst in [place], Dr. Rivera. On 09/26/2014 he underwent an extended low anterior resection with diverting loop ileostomy by Dr. Mora. His surgical pathology showed a large rectal villous adenoma with severe dysplasia, negative margins. A total of 13 lymph nodes harvested were negative for metastatic disease. Thus, he achieved complete pathologic response following neoadjuvant concurrent chemoradiation, Stage 0 (ypT0, ypN0). He was seen in emergency room on 10/11/2014 for diffuse abdominal pain. A CT of abdomen and pelvis showed multiple hepatic cysts and several hemangiomas as well as bilateral bronchiectasis with just elbow pulmonary nodules. Given advanced staging upfront, adjuvant chemotherapy with FOLFOX regimen was recommended. Cycle 1 began on 12/03/14. The treatment was complicated with possible mucositis and burning sensation in the tongue, related to oxaliplatin. The patient received 3 doses of FOLFOX treatment from 12/03/2014 thru 12/31/2014. After that he absolutely declined further treatment. Port-A-Cath was removed, and he was then been followed on observation/expectant management. Surveillance CT of the chest, abdomen, and pelvis on 07/10/2015 showed no evidence of metastatic or recurrent disease. There was findings of COPD, stable hemangioma in the liver, and reversal of the right lower quadrant ostomy. He was last seen for a follow-up visit on 11/30/2015. He appeared stable clinically with no evidence of recurrence of the rectal cancer. 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 I don't have any of those records available. He had a lengthy hospitalization, and he spent 2 weeks at [facility] following discharge. He was able to return home with his sister on 06/30/2018. On 08/30/2018 he presented to the emergency room with shortness of breath, cough, and hemoptysis. CT pulmonary angiogram showed markedly abnormal appearance of the lungs suggestive of a chronic infectious process. There were no pulmonary emboli identified. There were multiple lesions in the liver, a portion of which were likely benign, but with the remainder being indeterminate. He was admitted to [facility] in [place], and he did improve with antibiotic therapy. He had further evaluation with contrast-enhanced CT evidence/pelvis on 10/23/2018. It showed multiple hepatic cavernous hemangiomas, appearance of which was unchanged compared to prior study from 2016. There was no evidence of metastatic disease. With those findings he continued on observation/expectant management. On 12/17/2019 he presented to the emergency room with hematemesis. His CT pulmonary angiogram showed no evidence for pulmonary embolus. There were periseptal emphysematous changes with diffuse bronchiectasis more prominent in the mid and lower lungs bilaterally. Scattered areas of fibrosis appeared similar to a prior study from November 2018. That study showed diffuse thickening with prominent dilatation of the thoracic esophagus with air-fluid levels. Blood products were noted within the mid and distal esophagus with nodular thickening at the GE junction, suspicious for neoplasm. Fluid about the mid and distal esophagus and at the GE junction was suspicious for contained perforation. Partially visualized hepatic cyst and right cavernous hemangioma appeared stable. He was transferred to [facility] for admission, where he apparently was found to have a tear in his esophagus. He improved on conservative management. His CT abdomen/pelvis on 12/31/2019 showed lower lobe emphysematous changes and bronchiectasis. There was possible infiltrate in the left lower lobe and/or atelectasis. A 5.6 cm cyst in the right lobe of the liver appeared slightly more prominent. Several hepatic hemangiomas appeared stable and additional smaller cysts in the left lobe of the liver also appeared stable. The stomach was noted to be unremarkable. There was no new abdominal mass or lymphadenopathy identified. He is seen for a follow-up visit. He has been feeling pretty good generally. He says his energy is really good. He has normal activity. ECOG score is 0. Appetite also was good. He has not had fever. He has a little bit of sweating at night. He has a little bit of sinus drainage, managed with Flonase. He has not had sore mouth or throat. He says he coughs all the time, but that is chronic. He brings up clear yellow sputum. He is short of breath with activity. He does not complain of chest pain. He has no GI or complaints. He has no significant joint or bone pain. He does not complain of headache or dizziness. He does have numbness in his hands and to a lesser extent in his feet. Medications: Aspirin 1 Tablet (of 81 mg) Oral daily, dilTIAZem HCl 1 Tablet (of 180 mg) Oral daily, Fludrocortisone Acetate 2 Tablet (of 0.1 mg) Oral daily, Gabapentin 1 Capsule (of 100 mg) Oral t.i.d., methIMAzole 0.5 Tablet (of 5 mg) Oral q 8 hours, Metoprolol Succinate ER 1 Tablet (of 25 mg) Tablet SR 24 HR Oral daily, ProAir HFA Aerosol, solution Inhalation PRN, Senna-S 1 Tablet (of 8.6-50 mg) Oral PRN, Trelegy Ellipta 1 Inhalation Aerosol Powder, Breath Activated Inhalation daily Allergies: No Known Allergies. Vital Signs: Performed on May 03, 2021 10:08 Height - 71.00 in Weight - 140.6 lbs (LOW) BSA - 1.82 sq.m BMI - 19.61 Temperature - 98.7 F Pulse - 61 /min Respiration - 18 /min BP - 161/95 mm(hg) (HIGH) O2 Sat - 99 % Pain - 0 Fatigue - 0 Physical Examination: Constitutional - He looks pretty good generally, Eyes - Sclerae nonicteric. Conjunctivae clear, ENMT - No lesions noted in the oral cavity, Hematologic/Lymphatic - No cervical, clavicular, or axillary adenopathy, Respiratory - Lungs sound clear with diminished air movement bilaterally, Cardiovascular - Heart rhythm is regular. There is a II/ systolic murmur. There is no gallop or rub noted, Abdomen - Soft. Liver and spleen are not enlarged. There is no abdominal mass or ascites noted and there is no inguinal adenopathy, Extremities - No edema, Neurologic - No focal neurologic deficits noted. Lab/Imaging: Test performed on May 03, 2021 08:19 Sodium 140 mmol/L Potassium 2.8 mmol/L Chloride 102 mmol/L CO2 27 mmol/L Anion Gap 13.8 BUN 6 mg/dL Creatinine 0.8 mg/dL Cr Clearance (Est) 93.01 mL/min eGFR 100.0 mL/min Glucose 93 mg/dL Osmolality - Calculated 287 mOsm/kg Calcium 9.1 mg/dL Protein, Total 7.2 g/dL Albumin 4.1 g/dL Globulin 3.1 g/dL Bilirubin, Total 0.3 mg/dL ALT (SGPT) 8 U/L AST (SGOT) 11 U/L Alkaline Phosphatase 141 IU/L WBC 6.8 10 3/uL RBC 4.99 10 6/uL HGB 14.2 g/dL HCT 43.7 % MCV 87.6 fl MCH 28.5 pg MCHC 32.5 g/dL RDW 15.3 % Platelet Count 310 10 3/cmm MPV 9.2 fL Neutrophils 3.66 10 3/uL Lymphocytes 1.9 10 3/uL Monocytes 0.6 10 3/uL Eosinophils 0.6 10 3/uL Basophils 0.0 10 3/uL Neutrophil % 54.2 % Lymphocyte % 27.7 % Monocyte % 8.6 % Eosinophil % 8.7 % Basophils % 0.4 % NRBC % 0 % CEA 1.9 ng/mL Problem List: 1. Low-grade adenocarcinoma of the rectum, initially diagnosed in May 2014. By clinical evaluation, his disease was suspected to be stage IIIB (T3, N1, M0). 2. COPD of unclear etiology, as he is a nonsmoker and he had normal alpha-1 antitrypsin level. 3. He has multiple pulmonary nodules. 4. Autoimmune thyroiditis. 5. Hypertension. Problems Addressed with this Encounter and Plan: Patient with low-grade adenocarcinoma of the rectum, initially diagnosed in May 2014. By clinical evaluation, his disease was suspected to be stage IIIB (T3, N1, M0). He was given neoadjuvant chemoradiation utilizing infusional 5-FU, completed on 08/05/2014 to a total radiation dose of 5040 cGy. He underwent extended low anterior resection with diverting loop ileostomy on 09/26/2014. Pathology showed large villous adenoma with severe dysplasia and no invasive carcinoma, thus posttreatment stage 0 (ypT0, ypN0). Postoperative adjuvant chemotherapy with modified FOLFOX was attempted but stopped by the patient after 3 cycles due to multiple toxicities. He then began on observation/expectant management. During follow-up he continued to have somewhat marginal performance status. 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 His clinical course there apparently was also complicated by epilepsy. He also had suspected cardiovascular disease. He had been showing gradual recovery, but in the meantime he was admitted to the hospital in August [address] pulmonary angiogram at that time showed markedly abnormal appearance of the lungs which was felt to be suggestive of a chronic infectious process. There was no evidence of metastatic disease. His CT abdomen/pelvis on 10/23/2018 also showed no evidence of metastatic disease. He then continued followup with a portfolio analyst in [place]. On 12/17/2019 he was admitted to [facility] after presenting to the emergency room with hematemesis. He apparently was found to have a tear in his esophagus, but it has been getting better with conservative management. His evaluation included CT pulmonary angiogram and CT abdomen/pelvis, which showed no evidence of recurrence of his rectal cancer. At that point he was 5 years out from completion of his adjuvant chemotherapy. During subsequent follow-up he has been stable clinically. Thus far there has been no evidence of recurrence of the rectal cancer. As he is more than 5 years out from completion of his adjuvant chemotherapy, there is no indication for any further CT surveillance on a routine basis. However, to my knowledge he has never had a follow-up colonoscopy, I think because of his underlying medical issues. As he is now otherwise stable, I think that does need to be addressed. He can otherwise just continue his regular follow-up now with Dr. Kay. I will plan to see him again only as needed. Signed By: Ady Morel M.D. <<Signature on File>>
== END 2021-05-03 08:05 | disposition home or self-care (01) ==
PROVIDERS: PCP Family Medicine; Visit Provider Internal Medicine Medical Oncology
DX: Z08 Encounter for follow-up examination after completed treatment for malignant neoplasm (principal); Z85.048 Personal history of other malignant neoplasm of rectum, rectosigmoid junction, and anus; J44.9 Chronic obstructive pulmonary disease, unspecified; R79.89 Other specified abnormal findings of blood chemistry; R91.1 Solitary pulmonary nodule; E06.3 Autoimmune thyroiditis; I10 Essential (primary) hypertension; Z79.899 Other long term (current) drug therapy; Z92.21 Personal history of antineoplastic chemotherapy
CPT/HCPCS: 36415; 80053; 82378; 85025; 99214

== ENCOUNTER 2021-07-14 06:51 | Outpatient (CLI) | payer MEDICARE, MEDICAID, SELFPAY ==
--- NOTE | 2021-07-14 | US_ITS ---
WS: [id number] Subcutaneous ultrasound of right lateral knee. 07/14/2021 Clinical Data: RIGHT KNEE Comparison: None. Findings: There is a echo-free region lateral to the right knee measuring 0.52 x 1.64 x 1.83 cm. It has a well- defined border. No fluid level is seen. No debris is within this cystic region. US/US soft tissue/extremity [id number] Impression: Small fluid collection in the right lateral knee which may represent a seroma.
== END 2021-07-14 06:52 | disposition home or self-care (01) ==
LOC: RAD 06:52
PROVIDERS: PCP Family Medicine; Visit Provider Nurse Practitioner Family
DX: L03.119 Cellulitis of unspecified part of limb (principal); R23.8 Other skin changes; M25.461 Effusion, right knee
CPT/HCPCS: 76882

== ENCOUNTER → 2022-03-24 11:04 | Outpatient (BNVA) | payer MEDICARE, MEDICAID, SELFPAY | PROVIDERS: PCP Family Medicine; Visit Provider Internal Medicine | DX: I48.91 Unspecified atrial fibrillation (principal); Z86.79 Personal history of other diseases of the circulatory system; J44.9 Chronic obstructive pulmonary disease, unspecified; I10 Essential (primary) hypertension | CPT/HCPCS: 99214 ==

== ENCOUNTER 2022-04-28 13:11 | Outpatient (CLI) | payer MEDICARE, MEDICAID, SELFPAY ==
--- NOTE | 2022-04-28 14:15 | USCV_ITS ---
Ady Bernardo Age: 57 Gender: M : 1965 Exam Date: 04/28/2022 14:33 Ordering Phys: Scott Blanco M.D ([email or web address]) Technologist: Itz Paz Exam Location: [facility] [place] Indication: sob BP: 160 / 100 HR: 64 Rhythm: Sinus Technical Quality: Adequate MEASUREMENTS (Male / Female) Normal Values 2D ECHO LV Diastolic Diameter PLAX 4.8 cm 4.2 - 5.9 / 3.9 - 5.3 cm LV Systolic Diameter PLAX 4.0 cm IVS Diastolic Thickness 1.0 cm 0.6 - 1.0 / 0.6 - 0.9 cm IVS Systolic Thickness 1.3 cm LVPW Diastolic Thickness 1.0 cm 0.6 - 1.0 / 0.6 - 0.9 cm LVPW Systolic Thickness 1.1 cm LVOT Diameter 2.0 cm LV Ejection Fraction 2D Teich 35.2 % LV Ejection Fraction MOD 2C 56.8 % LV Ejection Fraction 2C AL 58.7 % LA Diameter 3.2 cm LA Width 3.5 cm LA Height 4.4 cm RA Width 5.2 cm RA Height 4.9 cm Aorta at Sinotubular Diameter 2.8 cm IVC Diameter 1.5 cm M-MODE Aortic Annulus Diameter 3.9 cm LA Ao Ratio MM 0.8 DOPPLER AV Peak Velocity 106.0 cm/s LVOT Peak Velocity 75.0 cm/s AV Area Cont Eq vti 2.4 cm squared AV Area Cont Eq pk 2.3 cm squared MV Peak Velocity 78.0 cm/s MV Area PHT 8.5 cm squared Mitral E to A Ratio 1.1 MV E' Velocity 30.5 cm/s Mitral E to MV E' Ratio 3.4 Mitral E to LV E' Lateral Ratio 4.2 Mitral E to LV E' Septal Ratio 2.9 TR Peak Velocity 261.0 cm/s TR Peak Gradient 27.3 mmHg TR Mean Velocity 191.5 cm/s TR Mean Gradient 16.0 mmHg TR Velocity Time Integral 78.9 cm Right Atrial Pressure 3.0 mmHg Pulmonary Artery Systolic Pressu 30.3 mmHg PV Peak Velocity 91.0 cm/s RV Acceleration Time 0.1 s RV Ejection Time 0.2 s RV AcT/ET 0.5 FINDINGS Left Ventricle Normal left ventricular size, systolic function and wall thickness, with no regional wall motion abnormalities. Left ventricular ejection fraction is estimated at 60 %. Grade I/IV diastolic dysfunction (abnormal relaxation filling pattern), normal to mildly elevated filling pressures. Right Ventricle The right ventricle is normal in size and function. Right Atrium The right atrium is normal in size. Left Atrium The left atrium is normal in size. Mitral Valve Structurally normal mitral valve without significant stenosis or prolapse. There is no mitral regurgitation. Aortic Valve Structurally normal aortic valve without significant sclerosis or stenosis. There is no aortic regurgitation. Tricuspid Valve Structurally normal tricuspid valve without significant stenosis, mild regurgitation. Pulmonary artery systolic pressure is normal. Pulmonic Valve Structurally normal pulmonic valve without significant stenosis. There is no pulmonic regurgitation. Pericardium Normal pericardium without effusion. Aorta Normal ascending aorta dimension. IVC The inferior vena cava appears normal. CONCLUSIONS 1-Normal left ventricular size, systolic function and wall thickness, with no regional wall motion abnormalities. Left ventricular ejection fraction is estimated at 60 %. Grade I/IV diastolic dysfunction (abnormal relaxation filling pattern), normal to mildly elevated filling pressures. 2-There is no pericardial effusion. 3-No significant valve abnormalities. 4-Right atrial pressure is around 5 mm of mercury. Marika An MD (Electronically Signed) Final Date: 28 April 2022 20:39 S
== END 2022-04-28 13:12 | disposition home or self-care (01) ==
LOC: RAD 13:16
PROVIDERS: PCP Family Medicine; Visit Provider Internal Medicine
DX: R06.02 Shortness of breath (principal)
CPT/HCPCS: 93306

== ENCOUNTER 2022-09-01 23:56 | Inpatient (IN) | payer MEDICARE, MEDICAID, SELFPAY ==
[2022-09-01 23:56] VITALS: BP 179/106; PULSE 50; RESP 16; TEMP 36.6; O2SAT 97
--- NOTE | 2022-09-01 23:58 | ECG_ITS ---
[facility] Test Date: 2022-09-02 Pat Name: Ady Bernardo Department: Room: Gender: Male Dish Person: : 1965 Requested By: Salina Medeiros Order Number: [id number] Joanne MD: Ministerio Gaspar M.D. Measurements Intervals [place] Rate: 67 P: 84 VA: 175 QRS: 82 QRSD: 115 T: 72 QT: 403 QTc: 426 Interpretive Statements SINUS RHYTHM INCOMPLETE RIGHT BUNDLE BRANCH BLOCK [90+ ms QRS DURATION, TERMINAL R IN V1/V2, 40+ ms S IN I/aVL/V4/V5/V6] Compared to ECG 12/17/2019 12:40:26 Incomplete right bundle-branch block now present Sinus arrhythmia no longer present Intraventricular conduction delay no longer present Electronically Signed On 09-02-2022 11:41:51 CDT by Ministerio Gaspar M.D. [email or web address]
[2022-09-02] VITALS (59 sets, daily range): BP systolic 113–200; BP diastolic 65–114; PULSE 45–79; RESP 6–21; TEMP 36.6–36.7; O2SAT 94–99; BMI 20.6
--- NOTE | 2022-09-02 00:04 | W.ED.OVERDOS ---
HPI - Overdose General: Chief Complaint: Overdose Stated Complaint: OD Time Seen by Provider: 09/01/22 23:58 Source: patient and EMS Mode of arrival: EMS Limitations: no limitations History of Present Illness: 57-year-old male states that he was thrown out of his family's house today been feeling depressed states he no longer wanted to live. He is found sitting in his car stated that he had tried to overdose. He states he took 2 handful of his pills he states roughly 10 pills he is unsure what pills that he did take. He is answering all my questions appropriately here he is not hypotensive. [facility] ED PFSH: Medical History Adrenal insufficiency Atrial fibrillation COPD (chronic obstructive pulmonary disease) Essential hypertension GBS (Guillain [place] syndrome) H/O supraventricular tachycardia Rectal cancer Family History Mother Cancer Father Diabetes CAD (coronary artery disease) Stroke Grandfather CAD (coronary artery disease) Lung disease Stroke Grandmother CAD (coronary artery disease) Diabetes Family/Other CAD (coronary artery disease) Other Hypertension Denies family history of Clotting disorder Dementia Chronic kidney disease (CKD) Suicide Anesthesia complication Bleeding disorder Social History Smoking and tobacco status: never smoked Alcohol intake: never Substance/Drug Use: never Marital status: Current occupational status: disabled Physical Exam Const: COMMON NORMALS: patient oriented x3 HENMT: COMMON NORMALS: normocephalic and atraumatic HEAD & SCALP: normocephalic and atraumatic Neck/C-Spine: COMMON NORMALS: full ROM and supple Chest: COMMONS NORMALS: normal inspection of the chest and normal palpation of entire chest wall Resp: COMMON NORMALS: normal respiratory effort, No retractions, No use of accessory muscles and clear to auscultation bilaterally AUSCULTATION: clear to auscultation bilaterally Cardio: COMMON NORMALS: regular rate, regular rhythm and No murmurs present (Cardio) RATE: regular rate RHYTHM: regular rhythm GI: COMMON NORMALS: Normal to inspection, nondistended, normoactive bowel sounds present, Soft to palpation, non-tender and no masses PALPATION: Yes Soft to palpation Extremity: COMMON NORMALS: normal to inspection and full ROM Neuro: COMMON NORMALS: patient oriented x3, moves all extremities and no focal motor deficits Psych: COMMON NORMALS: mental status grossly normal, Normal thought process present and cooperative THOUGHT PROCESS: Normal thought process present THOUGHT CONTENT: Yes Suicidality present Skin: COMMON NORMALS: no rashes or lesions noted and no wounds GENERAL SKIN EXAM: no rashes or lesions noted Course Vital Signs: Vital signs: Vital Signs Temperature 97.8 F 09/01/22 23:56 Pulse Rate 74 09/02/22 00:45 Respiratory Rate 17 09/02/22 00:30 Blood Pressure 200/114 09/02/22 00:45 Pulse Oximetry 99 09/02/22 00:45 Oxygen Delivery Me thod Room Air 09/02/22 00:15 MDM - Overdose Medical Decision Making Patient presents here with an intentional overdose he is placed under 96-hour hold I did speak to hospitalist will admit to the ICU at this time did speak to the psychiatrist who is consulted. Medical Records I reviewed the patient's medical records. Lab Data I reviewed the patient's lab results. 09/01/22 23:36 09/01/22 23:36 Laboratory Results WBC 9.4 10^3/uL (4.0-10.0) 09/01/22 23:36 RBC 4.73 10^6/uL (4.1-5.3) 09/01/22 23:36 Hgb 13.8 g/dL (11.7-16.6) 09/01/22 23:36 Hct 42.0 % (42.0-52.0) 09/01/22 23:36 MCV 88.8 fl (80-94) 09/01/22 23:36 MCH 29.2 pg (28.0-34.0) 09/01/22 23:36 MCHC 32.9 g/dL (30.0-36.0) 09/01/22 23:36 RDW 14.5 % (12.1-15.1) 09/01/22 23:36 Plt Count 215 10^3/cmm (130-400) 09/01/22 23:36 MPV 10.0 fL (7.4-10.4) 09/01/22 23:36 Neut % (Auto) 77.3 % 09/01/22 23:36 Lymph % (Auto) 12.4 % 09/01/22 23:36 [place] % (Auto) 6.9 % 09/01/22 23:36 Eos % (Auto) 3.0 % 09/01/22 23:36 Baso % (Auto) 0.3 % 09/01/22 23:36 Neut # (Auto) 7.27 10^3/uL (1.8-7.7) 09/01/22 23:36 Lymph # (Auto) 1.2 10^3/uL (0.8-4.8) 09/01/22 23:36 [place] # (Auto) 0.7 10^3/uL (0.2-0.9) 09/01/22 23:36 Eos # (Auto) 0.3 10^3/uL (0.0-0.8) 09/01/22 23:36 Baso # (Auto) 0.0 10^3/uL (0.0-0.1) 09/01/22 23:36 Nucleated RBC % (auto) 0 % 09/01/22 23:36 Nucleated RBCs # 0.0 /100WBC 09/01/22 23:36 Specimen Type Arterial 09/02/22 00:47 Sample Site Radial, left 09/02/22 00:47 ABG pH 7.46 (7.35-7.45) H 09/02/22 00:47 ABG pCO2 37.0 mmHg (35-45) 09/02/22 00:47 ABG pO2 81.5 mmHg (80.0-100.0) 09/02/22 00:47 ABG HCO3 26.1 mmol/L (22-26) H 09/02/22 00:47 ABG O2 Saturation 96.8 09/02/22 00:47 ABG Base Excess 2.3 mmol/L (-2.0-2.0) H 09/02/22 00:47 Beka Test Pos 09/02/22 00:47 A-a O2 Gradient 2.8 mmHg (5-10) L 09/02/22 00:47 Hematocrit 44.7 % (42-52) 09/02/22 00:47 Hgb O2 Saturation 95.7 % (95-100) 09/02/22 00:47 Carboxyhemoglobin 0.8 %THgb (0.4-20.1) 09/02/22 00:47 Methemoglobin 0.4 % (0.4-1.5) 09/02/22 00:47 Total Hemoglobin 14.6 g/dL (14-18) 09/02/22 00:47 Sodium 141.0 mmol/L (131-143) 09/02/22 00:47 Potassium 4.1 mmol/L (3.5-5.0) 09/02/22 00:47 Glucose 108.0 mg/dL (70-115) 09/02/22 00:47 Ionized Calcium 1.2 mmol/L (1.1-1.4) 09/02/22 00:47 O2 Delivery Device None 09/02/22 00:47 FiO2 21.0 % 09/02/22 00:47 Armature Bander ID Doreenadolfo 09/02/22 00:47 Sodium 140 mmol/L (136-145) 09/01/22 23:36 Potassium 3.7 mmol/L (3.5-5.1) 09/01/22 23:36 Chloride 104 mmol/L (98-107) 09/01/22 23:36 Carbon Dioxide 25 mmol/L (22-29) 09/01/22 23:36 Anion Gap 14.7 (5-19) 09/01/22 23:36 BUN 7 mg/dL (6-20) 09/01/22 23:36 Creatinine 1.0 mg/dL (0.7-1.2) 09/01/22 23:36 GFR Calculation 77.0 mL/min (90-130) L 09/01/22 23:36 Glucose 123 mg/dL (65-115) H 09/01/22 23:36 POC Glucose 101 mg/dL (70-110) 09/02/22 00:01 Calculated Osmolality 289 mOsm/kg (285-295) 09/01/22 23:36 Calcium 8.7 mg/dL (8.5-10.5) 09/01/22 23:36 Total Bilirubin 0.6 mg/dL (0.15-1.2) 09/01/22 23:36 AST 13 U/L (0-40) 09/01/22 23:36 ALT 7 U/L (0-41) 09/01/22 23:36 Alkaline Phosphatase 138 U/L (40-130) H 09/01/22 23:36 Total Protein 7.2 g/dL (6.6-8.7) 09/01/22 23:36 Albumin 4.1 g/dL (3.5-5.2) 09/01/22 23:36 Globulin 3.1 g/dL (1.3-4.6) 09/01/22 23:36 Salicylates 1.5 mg/dL (3-10) L 09/01/22 23:36 Urine Opiates Screen Negative ng/mL (Negative) 09/02/22 00:38 Acetaminophen < 5.0 ug/mL (10-30) L 09/01/22 23:36 Ur Barbiturates Screen Negative ng/mL (Negative) 09/02/22 00:38 Ur Phencyclidine Scrn Negative ng/mL (Negative) 09/02/22 00:38 Ur Amphetamines Screen Negative ng/mL (Negative) 09/02/22 00:38 U Benzodiazepines Scrn Negative ng/mL (Negative) 09/02/22 00:38 Urine Cocaine Screen Negative ng/mL (Negative) 09/02/22 00:38 U Marijuana (THC) Screen Negative ng/mL (Negative) 09/02/22 00:38 Ethyl Alcohol < 10 mg/dL (0-10) 09/01/22 23:36 EKG Data EKG 1: I personally reviewed and interpreted this EKG as follows: EKG interpretation date: 09/02/22 EKG interpretation time: 00:01 Interpretation: nsr hr [address] or t wave abnormalities qrs 115 qtc 418 Discharge Plan Discharge Patient Disposition: Admitted As Inpatient Clinical Impression: Suicide attempt by multiple drug overdose Condition: Stable Prescriptions: No Action Trelegy Ellipta 100-62.5-25 mcg blister with device 1 inh inhalation DAILY potassium chloride [Klor-Con M20] 20 mEq tablet,ER particles/crystals 20 meq PO DAILY Rx Instructions: pt states he ran out of this medication-pt states he hasnt taken for a couple days fludrocortisone 0.1 mg tablet 0.1 mg PO DAILY Qty: 90 3RF Tiadylt ER 180 mg capsule,extended release 24 hr 180 mg PO DAILY Qty: 90 3RF metoprolol succinate 50 mg tablet extended release 24 hr 50 mg PO DAILY aspirin 81 mg Tablet,Delayed Release (Dr/Ec) 81 mg PO DAILY methimazole 5 mg tablet 2.5 mg PO Q8H fluticasone propionate 50 mcg/actuation spray,suspension 2 spray INTRANASAL DAILY Referrals: Nellie Kay MD [Primary Care Provider] - Coding Level of Care Code ED Radiographic Technologist for Chg Ila
[2022-09-02 00:05] LABS: Glucose Point of Care 101 mg/dL (70-110)
--- NOTE | 2022-09-02 00:13 | PC.NURSE ---
POISON CONTROL CONTACTED. RECOMMENDED 46 HR OBSERVATION AND SUPPORTIVE CARE TO MAINTAIN VITALS. DR. ORTEGA NOTIFIED.
[2022-09-02 00:16] LABS: Basophils % 0.3 %; Eosinophils # 0.3 10^3/uL (0.0-0.8); Hemoglobin 13.8 g/dL (11.7-16.6); Lymphocytes # 1.2 10^3/uL (0.8-4.8); Lymphocytes % 12.4 %; Mean Corpuscular HGB Conc 32.9 g/dL (30.0-36.0); Mean Corpuscular Hemoglobin 29.2 pg (28.0-34.0); Mean Corpuscular Volume 88.8 fl (80-94); Monocytes # 0.7 10^3/uL (0.2-0.9); Monocytes % 6.9 %; Neutrophils # 7.27 10^3/uL (1.8-7.7); Neutrophils % 77.3 %; Nucleated Red Blood Cells % 0 %; Platelet Count 215 10^3/cmm (130-400); Red Blood Count 4.73 10^6/uL (4.1-5.3); Red Cell Distribution Width 14.5 % (12.1-15.1); White Blood Count 9.4 10^3/uL (4.0-10.0)
[2022-09-02 00:35] LABS: Alanine Aminotransferase 7 U/L (0-41); Albumin Level 4.1 g/dL (3.5-5.2); Alkaline Phosphatase 138 U/L (40-130); Anion Gap 14.7 (5-19); Aspartate Amino Transferase 13 U/L (0-40); Blood Urea Nitrogen 7 mg/dL (6-20); Calcium 8.7 mg/dL (8.5-10.5); Carbon Dioxide 25 mmol/L (22-29); Chloride 104 mmol/L (98-107); Globulin 3.1 g/dL (1.3-4.6); Glucose 123 mg/dL (65-115); Osmolality Calculated 289 mOsm/kg (285-295); Potassium 3.7 mmol/L (3.5-5.1); Salicylate 1.5 mg/dL (3-10); Sodium 140 mmol/L (136-145); Total Bilirubin 0.6 mg/dL (0.15-1.2); Total Protein 7.2 g/dL (6.6-8.7)
[2022-09-02 00:36] LABS: Acetaminophen < 5.0 ug/mL (10-30); Alcohol Level < 10 mg/dL (0-10)
--- NOTE | 2022-09-02 00:50 | PC.NURSE ---
96 Hour Patient Rights have been read to patient and a copy of the same has been given to him. Travel Services Professional Kamaljit Adkins was present at bedside at the time of reading.
[2022-09-02 01:01] LABS: ABG PH Result 7.46 (7.35-7.45); Alveolar-Arterial Oxygen Gradi 2.8 mmHg (5-10); Arterial Blood Gas Hematocrit 44.7 % (42-52); Base Excess ABG 2.3 mmol/L (-2.0-2.0); Blood Gas Allen Test Pos; Blood Gas Sample Site Radial, left; Blood Gas Sample Type Arterial; Carboxyhemoglobin 0.8 %THgb (0.4-20.1); HCO3 ABG 26.1 mmol/L (22-26); HGB O2 Sat 95.7 % (95-100); Ionized Calcium Level - ABG 1.2 mmol/L (1.1-1.4); Methemoglobin 0.4 % (0.4-1.5); Oxygen Saturation ABG 96.8; PO2 ABG 81.5 mmHg (80.0-100.0); Potassium Level - ABG 4.1 mmol/L (3.5-5.0); Total Hemoglobin 14.6 g/dL (14-18)
[2022-09-02 01:02] LABS: Amphetamines Screen Urine Negative (Negative); Barbiturates Screen Urine Negative (Negative); Benzodiazepines Screen Urine Negative (Negative); Cocaine Screen Urine Negative (Negative); Opiate Screen Urine Negative (Negative); PCP Screen Urine Negative (Negative); THC Screen Urine Negative (Negative)
--- NOTE | 2022-09-02 01:19 | P.HP_ITS ---
Providers/Chief Complaint Admitting Physician: Abdirahman Kay MD Primary Care Provider: Nellie Kay MD Chief Complaint: OD History of Present Illness Ady Bernardo is a 57 year old male who presents to the hospital with reported suicide attempt. He reports that he was very upset with his sister, who kicked him out of the house. He was so upset that he attempted to harm himself by taking a handful of his pills. He thinks he took 10 or more. He is not for sure which of his pills he took. He reports he does not want to harm himself currently. He denies any feelings of lethargy, headache, shortness of breath. No nausea or vomiting. Review of Systems General: Reports: 10 or more systems reviewed and unremarkable except in HPI and below Card: Denies: chest pain Resp: Denies: dyspnea GI: Denies: abdominal pain or nausea Medications/Allergies Home Medications Medication Instructions Recorded Confirmed Last Taken Type potassium chloride 20 mEq 20 meq PO DAILY 06/24/19 03/24/22 Unknown History tablet,extended release(part/cryst) (Klor-Con M) fludrocortisone 0.1 mg tablet 0.1 mg PO DAILY #90 tabs 07/10/19 03/24/22 12/17/19 Rx aspirin 81 mg tablet,delayed 81 mg PO DAILY 12/17/19 03/24/22 12/17/19 History release fluticasone propionate 50 2 spray intranasal DAILY 12/17/19 03/24/22 Unknown History mcg/actuation nasal spray,suspension methimazole 5 mg tablet 2.5 mg PO Q8H 12/17/19 03/24/22 12/17/19 08:30 History metoprolol succinate 50 mg 50 mg PO DAILY 12/17/19 03/24/22 12/17/19 History tablet,extended release 24 hr fluticasone fur. 100 mcg-umeclid 1 inh inhalation DAILY 03/24/22 03/24/22 Unknown History 62.5 mcg-vilant 25 mcg inhalat.powder (Trelegy Ellipta) diltiazem HCl 180 mg capsule,24 180 mg PO DAILY #90 caps 05/31/22 Unknown Rx hr,extended release (Tiadylt ER) Allergies Allergy/AdvReac Type Severity Reaction Status Date / Time Influenza Virus Vaccines Allergy ADR-Numbnes Verified 03/24/22 12:54 s covid sars-2 Allergy Unknown Uncoded 03/24/22 12:54 PFSH Acute PFSH: Medical History (Updated 09/02/22 @ 02:13 by Abdirahman Kay MD) Adrenal insufficiency Atrial fibrillation COPD (chronic obstructive pulmonary disease) Essential hypertension GBS (Guillain [place] syndrome) H/O supraventricular tachycardia Hyperthyroidism Rectal cancer Surgical History (Updated 09/02/22 @ 02:12 by Abdirahman Kay MD) History of lung surgery History of tracheostomy Hx of hand surgery Family History Mother Cancer Father Diabetes CAD (coronary artery disease) Stroke Grandfather CAD (coronary artery disease) Lung disease Stroke Grandmother CAD (coronary artery disease) Diabetes Family/Other CAD (coronary artery disease) Other Hypertension Denies family history of Clotting disorder Dementia Chronic kidney disease (CKD) Suicide Anesthesia complication Bleeding disorder Social History Smoking and tobacco status: never smoked Alcohol intake: never Substance/Drug Use: never Marital status: Current occupational status: disabled Vitals/I&O/Wt Last Vital Signs Temp 97.8 F 09/01/22 23:56 Pulse 74 09/02/22 00:45 Resp 17 09/02/22 00:30 BP 200/114 09/02/22 00:45 Pulse Ox 99 09/02/22 00:45 O2 Del Method Room Air 09/02/22 00:15 Weight last 48 hrs Weight 70.307 kg Physical Exam Narrative: General exam is awake and alert male, remorseful regarding his decision to harm himself, in no distress HEENT: Atraumatic and normocephalic. Oropharynx clear Neck is supple, previous tracheostomy scar is noted Cardiovascular regular rate and rhythm, no murmur Lungs clear no wheezing or crackles Abdomen soft nontender positive bowel sounds. 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 2 of these are concerning, diltiazem and metoprolol. It is unknown if he got significant amounts. Currently his vital signs are stable. 96-hour hold Psychiatric consultation Hold his current medications, monitoring for effects of overdose Repeat laboratory in the morning including glucose. Check glucose. Telemetry (2) H/O supraventricular tachycardia: Monitor on telemetry. As of now we will have to hold his diltiazem and metoprolol. (3) Essential hypertension: Monitor closely but avoid treatment secondary to possibility of toxic medication effect from overdose (4) Adrenal insufficiency: Medicine seems to indicate he is only on fludrocortisone. This would be atypical. As soon as med rec is done, if he is on this it should be restarted. Plan History of hypothyroidism. TSH slightly elevated. Consider slight reduction of methimazole when it is restarted. We will also check a free T4 Other medical problems as outlined in past medical history Full code Low risk for DVT, no prophylaxis needed Attestations Medical Necessity Statement*: Will need greater than 2 midnight stay for evaluation and treatment of suicide attempt by overdose. Psychiatric care will be needed as adjunct. Diagnoses Suicide attempt by multiple drug overdose T50.912A H/O supraventricular tachycardia Z86.79 Essential hypertension I10 Adrenal insufficiency E27.40 Time Spent (min) 47
[2022-09-02 01:54] LABS: Thyroid Stimulating Hormone 5.85 uIU/mL (0.27-4.20)
[2022-09-02] MEDS: sodium chloride 0.9% 1,000 ML 75 ML IV ×2 (02:24→16:38)
[2022-09-02 03:12] LABS: Free T4 Free Thyroxine 1.02 ng/dL (0.82-1.77)
[2022-09-02 05:01] LABS: Basophils % 0.4 %; Eosinophils # 0.4 10^3/uL (0.0-0.8); Hematocrit 41.6 % (42.0-52.0); Hemoglobin 13.3 g/dL (11.7-16.6); Lymphocytes # 1.3 10^3/uL (0.8-4.8); Lymphocytes % 17.2 %; Mean Corpuscular Hemoglobin 28.8 pg (28.0-34.0); Mean Platelet Volume 9.9 fL (7.4-10.4); Monocytes # 0.7 10^3/uL (0.2-0.9); Monocytes % 8.6 %; Neutrophils # 5.32 10^3/uL (1.8-7.7); Neutrophils % 68.5 %; Nucleated Red Blood Cells % 0 %; Platelet Count 206 10^3/cmm (130-400); Red Blood Count 4.62 10^6/uL (4.1-5.3); Red Cell Distribution Width 14.6 % (12.1-15.1); White Blood Count 7.8 10^3/uL (4.0-10.0)
[2022-09-02 05:23] LABS: Alanine Aminotransferase 6 U/L (0-41); Albumin Level 3.8 g/dL (3.5-5.2); Alkaline Phosphatase 131 U/L (40-130); Anion Gap 11.9 (5-19); Aspartate Amino Transferase 10 U/L (0-40); Blood Urea Nitrogen 7 mg/dL (6-20); Calcium 8.7 mg/dL (8.5-10.5); Carbon Dioxide 27 mmol/L (22-29); Chloride 106 mmol/L (98-107); Globulin 2.4 g/dL (1.3-4.6); Glomerular Filtration Rate 99.6 mL/min (90-130); Glucose 102 mg/dL (65-115); Magnesium 2.1 mg/dL (1.7-2.3); Osmolality Calculated 290 mOsm/kg (285-295); Potassium 3.9 mmol/L (3.5-5.1); Sodium 141 mmol/L (136-145); Total Bilirubin 0.6 mg/dL (0.15-1.2); Total Protein 6.2 g/dL (6.6-8.7)
--- NOTE | 2022-09-02 08:12 | PC.PHAR ---
pt states he takes care of his own medications-medications entered are from what the pt states he takes and from what shows was filled on ext med history
[2022-09-02] MEDS: fludrocortisone 0.1 mg Tablet PO (08:24)
[2022-09-02 09:05] LABS: Cortisol Random 2.42 ug/dL (2.47-19.5)
[2022-09-02] MEDS: methIMAzole 5 MG Tablet 2.5 MG PO ×2 (09:34→16:37)
[2022-09-02] MEDS: aspirin 81 mg EC Tablet PO (09:34)
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
--- NOTE | 2022-09-02 13:56 | P.PN_ITS ---
Subjective Subjective: Patient was seen this morning, he is alert oriented x3, follows all commands, he denies active suicidal ideation, denies active homicidal ideation, denies hearing things that are not there denies seeing things are not there, he tells me that he took a handful of pills he is not exactly sure what pills, denies any lightheadedness, no dizziness, no nausea, no vomiting, no abdominal pain, no bloody or black stools, he becomes very irritated with me, when I tell him that I would keep her on a cardiac diet, he tells to the [facility] had better food, I asked him when he was up at [facility] but he was unable to give me a answer, Vitals/I&O/Wt Last Vital Signs Temp 97.9 F 09/02/22 01:58 Pulse 48 L 09/02/22 12:00 Resp 14 09/02/22 12:00 BP 132/70 09/02/22 12:00 Pulse Ox 98 09/02/22 12:00 O2 Del Method Room Air 09/02/22 08:00 09/01/22 09/02/22 09/02/22 22:59 06:59 14:59 Intake Total 0 / 0 450 / 450 Output Total 450 / 450 400 / 400 Balance -450 / -450 50 / 50 Weight last 48 hrs Weight 67 kg Weight 67 kg Weight 70.307 kg Physical Exam Const: COMMON NORMALS: no acute distress and patient oriented x3 Resp: COMMON NORMALS: normal respiratory effort, No retractions, No use of accessory muscles and clear to auscultation bilaterally AUSCULTATION: clear to auscultation bilaterally Cardio: COMMON NORMALS: regular rhythm, S1 normal heart sound present and S2 normal heart sound present RATE: bradycardic RHYTHM: regular rhythm HEART SOUNDS: S1 normal heart sound present and S2 normal heart sound present GI: COMMON NORMALS: Normal to inspection, nondistended, normoactive bowel sounds present and non-tender Extremity: COMMON NORMALS: no pedal edema Neuro: COMMON NORMALS: patient oriented x3 Psych: COMMON NORMALS: mental status grossly normal Data 09/02/22 04:37 09/02/22 04:37 A&P Assessment and plan (1) Suicide attempt by multiple drug overdose: Patient presents with a suicide attempt by multiple drugs 2 of these are concerning, diltiazem and metoprolol He does have sinus bradycardia, likely the effect of beta-ti, calcium channel ti, continue to monitor telemetry 96-hour hold Psychiatric consultation Hold his current medications, monitoring for effects of overdose Telemetry (2) H/O supraventricular tachycardia: Monitor on telemetry. As of now we will have to hold his diltiazem and metoprolol. (3) Essential hypertension: Monitor closely but avoid treatment secondary to possibility of toxic medication effect from overdose (4) Adrenal insufficiency: Does have low levels of cortisol, continue fludrocortisone, not sure why he is not on hydrocortisone (5) Suicide attempt by beta ti overdose: (6) Intentional overdose of calcium-channel ti: (7) Sinus bradycardia: Plan History of hypothyroidism. 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, status post chemoradiation therapy History of COPD Full code lovenox for dvt prophylaxis Plan for today, continue telemetry monitoring, hold metoprolol hold Cardizem, psychiatry consultation, spoke to psychiatry, spoke to patient, spoke to nursing staff, monitor hemodynamics Lovenox for DVT prophylaxis Attestations Medical Necessity Statement*: Patient requires hospitalization for suicide attempt, beta-ti overdose, calcium channel ti overdose Diagnoses Suicide attempt by multiple drug overdose T50.912A H/O supraventricular tachycardia Z86.79 Essential hypertension I10 Adrenal insufficiency E27.40 Suicide attempt by beta ti overdose T44.7X2A Intentional overdose of calcium-channel ti T46.1X2A Sinus bradycardia R00.1
[2022-09-02] MEDS: enoxaparin 40 mg/0.4 mL Syringe SUBCUT (15:51)
[2022-09-03] VITALS (20 sets, daily range): BP systolic 130–179; BP diastolic 77–105; PULSE 47–80; RESP 13–19; TEMP 36.6–36.8; O2SAT 96–99
[2022-09-03] MEDS: methIMAzole 5 MG Tablet 2.5 MG PO ×3 (00:58→17:12)
[2022-09-03 02:53] LABS: Basophils % 0.3 %; Eosinophils # 0.4 10^3/uL (0.0-0.8); Eosinophils % 6.3 %; Hematocrit 41.6 % (42.0-52.0); Hemoglobin 13.5 g/dL (11.7-16.6); Lymphocytes # 1.1 10^3/uL (0.8-4.8); Lymphocytes % 17.9 %; Mean Corpuscular HGB Conc 32.5 g/dL (30.0-36.0); Mean Corpuscular Hemoglobin 29.6 pg (28.0-34.0); Mean Corpuscular Volume 91.2 fl (80-94); Mean Platelet Volume 9.5 fL (7.4-10.4); Monocytes # 0.5 10^3/uL (0.2-0.9); Monocytes % 7.5 %; Neutrophils # 4.17 10^3/uL (1.8-7.7); Neutrophils % 67.7 %; Nucleated Red Blood Cells % 0 %; Platelet Count 172 10^3/cmm (130-400); Red Blood Count 4.56 10^6/uL (4.1-5.3); Red Cell Distribution Width 14.6 % (12.1-15.1); White Blood Count 6.2 10^3/uL (4.0-10.0)
[2022-09-03 03:13] LABS: Anion Gap 13.4 (5-19); Blood Urea Nitrogen 9 mg/dL (6-20); Calcium 8.4 mg/dL (8.5-10.5); Carbon Dioxide 24 mmol/L (22-29); Chloride 108 mmol/L (98-107); Glomerular Filtration Rate 138.9 mL/min (90-130); Glucose 95 mg/dL (65-115); Osmolality Calculated 292 mOsm/kg (285-295); Potassium 3.4 mmol/L (3.5-5.1); Sodium 142 mmol/L (136-145)
[2022-09-03 03:22] LABS: Magnesium 1.7 mg/dL (1.7-2.3)
[2022-09-03] MEDS: aspirin 81 mg EC Tablet PO (06:03)
[2022-09-03] MEDS: sodium chloride 0.9% 1,000 ML 75 ML IV (06:08)
[2022-09-03] MEDS: fludrocortisone 0.1 mg Tablet PO (08:01)
--- NOTE | 2022-09-03 08:09 | PC.NURSE ---
very cooperative watching tv t this time breakfast served no c/o voiced
[2022-09-03] MEDS: potassium chloride ER 20 mEq Tablet 40 MEQ PO (08:34)
[2022-09-03] MEDS: lisinopril 10 mg Tablet PO ×2 (08:34→17:13)
--- NOTE | 2022-09-03 11:23 | PM.PN ---
Subjective Subjective: - Patient was seen this morning -He denies feeling lightheaded, no dizziness, no nausea, no vomiting, no chest pain, no palpitations, no headache, no blurry vision Vitals/I&O/Wt Last Vital Signs Temp 98.0 F 09/02/22 20:00 Pulse 59 L 09/03/22 09:00 Resp 19 H 09/03/22 09:00 BP 160/96 09/03/22 10:00 Pulse Ox 97 09/03/22 09:00 O2 Del Method Room Air 09/03/22 07:33 09/02/22 09/03/22 09/03/22 22:59 06:59 14:59 Intake Total 1350 / 1800 1185 / 2985 250 / 250 Output Total 850 / 1250 950 / 2200 450 / 450 Balance 500 / 550 235 / 785 -200 / -200 Weight last 48 hrs Weight 67 kg Weight 67 kg Weight 70.307 kg Physical Exam Const: COMMON NORMALS: no acute distress and patient oriented x3 Resp: COMMON NORMALS: normal respiratory effort, No retractions, No use of accessory muscles and clear to auscultation bilaterally AUSCULTATION: clear to auscultation bilaterally Cardio: COMMON NORMALS: regular rhythm, S1 normal heart sound present and S2 normal heart sound present RATE: bradycardic RHYTHM: regular rhythm HEART SOUNDS: S1 normal heart sound present and S2 normal heart sound present GI: COMMON NORMALS: Normal to inspection, nondistended, normoactive bowel sounds present and non-tender Extremity: COMMON NORMALS: no pedal edema Neuro: COMMON NORMALS: patient oriented x3 Psych: COMMON NORMALS: mental status grossly normal Data 09/03/22 02:34 09/03/22 02:34 A&P Assessment and plan (1) Suicide attempt by multiple drug overdose: Patient presents with a suicide attempt by multiple drugs 2 of these are concerning, diltiazem and metoprolol He does have sinus bradycardia, likely the effect of beta-ti, calcium channel ti, continue to hold 96-hour hold Psychiatric consultation Hold his current medications, monitoring for effects of overdose (2) H/O supraventricular tachycardia: Monitor on telemetry. As of now we will have to hold his diltiazem and metoprolol. (3) Essential hypertension: Start lisinopril 10 twice daily, will add chlorthalidone 25 mg once daily (4) Adrenal insufficiency: Does have low levels of cortisol, continue fludrocortisone, not sure why he is not on hydrocortisone (5) Suicide attempt by beta ti overdose: (6) Intentional overdose of calcium-channel ti: (7) Sinus bradycardia: Has sinus bradycardia, could be intentional overdose of calcium channel ti with beta-ti Asymptomatic currently We will continue to hold beta-ti, Cardizem for another 24 hours we will reinstitute tomorrow Plan History of hypothyroidism. 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, status post chemoradiation therapy History of COPD Full code lovenox for dvt prophylaxis Plan for today, start lisinopril 10 twice daily, continue chlorthalidone for blood pressure control, hold beta-ti hold calcium channel ti, if he remains asymptomatic with ambulation will move to neuropsychiatric unit, repeat EKG today Attestations Medical Necessity Statement*: Patient requires hospitalization for suicide attempt, drug overdose, with sinus bradycardia, calcium channel ti overdose, beta-ti overdose relative asymptomatic, with hypertension lisinopril added to his blood pressure medication chlorthalidone added to blood pressure medication, moved to NPU, spoke to Dr. Adkins, spoke to nursing staff Diagnoses Suicide attempt by multiple drug overdose T50.912A H/O supraventricular tachycardia Z86.79 Essential hypertension I10 Adrenal insufficiency E27.40 Suicide attempt by beta ti overdose T44.7X2A Intentional overdose of calcium-channel ti T46.1X2A Sinus bradycardia R00.1
--- NOTE | 2022-09-03 11:26 | ECG_ITS ---
[facility] Test Date: 2022-09-03 Pat Name: Ady Bernardo Department: Room: ICU10 Gender: Male Hpl[employer] Chemist: : 1965 Requested By: Sourav Burger Order Number: [id number] Joanne MD: Padma Orozco M.D. Measurements Intervals [place] Rate: 62 P: 79 LA: 164 QRS: 78 QRSD: 112 T: 66 QT: 409 QTc: 418 Interpretive Statements SINUS RHYTHM WITH OCCASIONAL VENTRICULAR PREMATURE COMPLEXES MODERATE INTRAVENTRICULAR CONDUCTION DELAY [110+ ms QRS DURATION] Compared to ECG 09/02/2022 00:01:13 Ventricular premature complex(es) now present Intraventricular conduction delay now present Incomplete right bundle-branch block no longer present Electronically Signed On 09-03-2022 11:41:05 CDT by Padma Orozco M.D. [email or web address]
[2022-09-03] MEDS: chlorthalidone 25 mg Tablet PO (12:06)
--- NOTE | 2022-09-03 13:07 | PC.NURSE ---
report called will transfer npu
--- NOTE | 2022-09-03 17:14 | W.PM.NPUPNS ---
Subjective NPU Subjective: Patient presented today reporting that he is doing okay. He reports that he and his sister have had some more constructive conversations about the situation. She reportedly has an [employer] camper that she is going to sell to him and there is [place] placed on the property that actually he has some ownership or autonomy about which addressed the issue that he felt she was treating him like a child and not giving him any respects. He reports that he feels like there could be other work out the issues related to his daughter and he reports he is feeling optimistic about the future. Mental Status Exam MSE Comments: This is an underweight? white male, in hospital scrubs with improving grooming/hygiene and adequate eye contact. No abnormal movements except for mild psychomotor retardation. Cooperative with exam in mild distress. Speech was more normal rate and volume. Mood described fine, maybe a little better; affect congruent. Thought process, mostly organized. Thought content: patient denied any current suicidal or homicidal ideation, there were no delusions reported or noted, patient denied auditory or visual hallucinations. Attention and concentration appeared intact, and memory appeared mostly intact, but none were formally tested.? He was alert and oriented x3. Insight and judgment judgment appear limited, but improving and impulse control appears limited. Vitals/I&O/Wt Last Vital Signs Temp 98 F 09/03/22 16:00 Pulse 80 09/03/22 16:00 Resp 18 09/03/22 16:00 BP 147/105 09/03/22 16:00 Pulse Ox 98 09/03/22 16:00 O2 Del Method Room Air 09/03/22 16:00 Weight last 48 hrs Weight 69.037 kg Data NPU 09/03/22 02:34 09/03/22 02:34 A&P Assessment and plan (1) Suicide attempt by beta ti overdose: (2) Suicide attempt by multiple drug overdose: (3) Sinus bradycardia: (4) Intentional overdose of calcium-channel ti: (5) Adrenal insufficiency: (6) Essential hypertension: (7) COPD (chronic obstructive pulmonary disease): (8) H/O supraventricular tachycardia: (9) Atrial fibrillation: (10) Sibling relational problem: (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 1. Continue current medication.? We will try to get some collateral information. Agree with 96-hour hold. 2. Will initiate individual, group, and milieu therapy on the unit. 3. Will start every 15 minute checks after transfer. 4. Encourage sober living treatment after discharge at the highest level of care to which he is willing to commit. 5. Transfer to neuropsychiatric unit after medically stable and bradycardia resolves. Involuntary Hold Information 96 Hour Hold: 96 Hour Involuntary Admission: Yes 96 Hour Hold Ending Date: 09/08/22 96 Hour Hold Ending Time: 00:30 Attestations NPU Medical Necessity Statement*: Inpatient hospitalization is medically necessary and the clinically appropriate intervention, at this time. We will monitor medications and make changes as indicated. Likely length of stay is 2-4 days. Coding Level of Care Code Acute Code for [facility] Fwd Diagnoses Suicide attempt by beta ti overdose T44.7X2A Suicide attempt by multiple drug overdose T50.912A Sinus bradycardia R00.1 Intentional overdose of calcium-channel ti T46.1X2A Adrenal insufficiency E27.40 Essential hypertension I10 COPD (chronic obstructive pulmonary disease) J44.9 H/O supraventricular tachycardia Z86.79 Atrial fibrillation I48.91 Sibling relational problem Z63.8 Adjustment disorder with mixed disturbance of emotions and conduct F43.25
[2022-09-03] MEDS: ipratropium-albuterol 3 mL Neb INHALATION ×2 (17:48→20:05)
[2022-09-03] MEDS: budesonide 0.5 mg/2 mL Neb INHALATION (20:05)
[2022-09-04] VITALS (8 sets, daily range): BP systolic 132–135; BP diastolic 79–85; PULSE 67–83; RESP 18–20; TEMP 36.6–37; O2SAT 95–99
[2022-09-04] MEDS: methIMAzole 5 MG Tablet 2.5 MG PO ×3 (02:10→17:34)
[2022-09-04] MEDS: aspirin 81 mg EC Tablet PO (05:38)
[2022-09-04] MEDS: ipratropium-albuterol 3 mL Neb INHALATION ×4 (07:49→21:03)
[2022-09-04] MEDS: budesonide 0.5 mg/2 mL Neb INHALATION ×2 (07:49→21:03)
--- NOTE | 2022-09-04 08:43 | W.PM.NPUPNS ---
Subjective NPU Subjective: Patient presented today reporting that he is doing better. He reports that he and his sister have continued to have constructive conversations about the situation. They continued to discuss RV/camper that she is going to place on the property. We discussed the social workers coming in tomorrow and working on the discharge plan with plan for discharge in the next 48 hours. Mental Status Exam MSE Comments: This is an underweight? white male, in hospital scrubs with improving grooming/hygiene and adequate eye contact. No abnormal movements except for mild psychomotor retardation. Cooperative with exam in mild distress. Speech was more normal rate and volume. Mood described fine, maybe a little better; affect congruent. Thought process, mostly organized. Thought content: patient denied any current suicidal or homicidal ideation, there were no delusions reported or noted, patient denied auditory or visual hallucinations. Attention and concentration appeared intact, and memory appeared mostly intact, but none were formally tested.? He was alert and oriented x3. Insight and judgment judgment appear limited, but improving and impulse control appears limited. Vitals/I&O/Wt Last Vital Signs Temp 97.9 F 09/04/22 06:42 Pulse 82 09/04/22 07:56 Resp 18 09/04/22 07:52 BP 132/79 09/04/22 06:42 Pulse Ox 96 09/04/22 07:52 O2 Del Method Room Air 09/04/22 07:52 09/03/22 09/04/22 09/04/22 22:59 06:59 14:59 Intake Total 1000 / 1700 Balance 1000 / 800 Weight last 48 hrs Weight 69.037 kg Data NPU 09/04/22 11:54 09/04/22 15:44 A&P Assessment and plan (1) Suicide attempt by beta ti overdose: (2) Suicide attempt by multiple drug overdose: (3) Sinus bradycardia: (4) Intentional overdose of calcium-channel ti: (5) Adrenal insufficiency: (6) Essential hypertension: (7) COPD (chronic obstructive pulmonary disease): (8) H/O supraventricular tachycardia: (9) Atrial fibrillation: (10) Sibling relational problem: (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 1. Continue current medication.? We will try to get some collateral information. Agree with 96-hour hold. 2. Encourage individual, group, and milieu therapy on the unit. 3. Continue every 15 minute checks after transfer. 4. Encourage sober living treatment after discharge at the highest level of care to which he is willing to commit. Involuntary Hold Information 96 Hour Hold: 96 Hour Involuntary Admission: Yes 96 Hour Hold Ending Date: 09/08/22 96 Hour Hold Ending Time: 00:30 Attestations NPU Medical Necessity Statement*: Inpatient hospitalization is medically necessary and the clinically appropriate intervention, at this time. We will monitor medications and make changes as indicated. Likely length of stay is 1-3 days. Coding Level of Care Code Acute Code for g Fwd Diagnoses Suicide attempt by beta ti overdose T44.7X2A Suicide attempt by multiple drug overdose T50.912A Sinus bradycardia R00.1 Intentional overdose of calcium-channel ti T46.1X2A Adrenal insufficiency E27.40 Essential hypertension I10 COPD (chronic obstructive pulmonary disease) J44.9 H/O supraventricular tachycardia Z86.79 Atrial fibrillation I48.91 Sibling relational problem Z63.8 Adjustment disorder with mixed disturbance of emotions and conduct F43.25
[2022-09-04] MEDS: chlorthalidone 25 mg Tablet PO (09:08)
[2022-09-04] MEDS: lisinopril 10 mg Tablet PO (09:08)
[2022-09-04] MEDS: fludrocortisone 0.1 mg Tablet PO (09:08)
--- NOTE | 2022-09-04 09:13 | PC.NURSE ---
Patient denied all to this nurse. Patient states that he had a good conversation with his sister yesterday. Patient is going to purchase a camper from his sister. They established ground rules during their meeting tomorrow. Patient is going to try to work things out with these new rules. Calm and appears to be in good spirits
[2022-09-04] MEDS: dilTIAZem ER (24HR) 180 mg Capsule PO (10:30)
[2022-09-04 13:22] LABS: Basophils % 0.3 %; Eosinophils # 0.3 10^3/uL (0.0-0.8); Eosinophils % 3.5 %; Hematocrit 46.2 % (42.0-52.0); Hemoglobin 14.7 g/dL (11.7-16.6); Lymphocytes # 1.7 10^3/uL (0.8-4.8); Lymphocytes % 22.3 %; Mean Corpuscular HGB Conc 31.8 g/dL (30.0-36.0); Mean Corpuscular Hemoglobin 29.8 pg (28.0-34.0); Mean Corpuscular Volume 93.7 fl (80-94); Mean Platelet Volume 10.5 fL (7.4-10.4); Monocytes # 0.5 10^3/uL (0.2-0.9); Neutrophils # 5.08 10^3/uL (1.8-7.7); Neutrophils % 66.6 %; Nucleated Red Blood Cells % 0 %; Platelet Count 165 10^3/cmm (130-400); Red Blood Count 4.93 10^6/uL (4.1-5.3); Red Cell Distribution Width 14.4 % (12.1-15.1); White Blood Count 7.6 10^3/uL (4.0-10.0)
--- NOTE | 2022-09-04 16:18 | PM.PN ---
Subjective Subjective: Patient was seen this morning, he has no complaints, no lightheadedness, no dizziness Vitals/I&O/Wt Last Vital Signs Temp 98.6 F 09/04/22 14:00 Pulse 79 09/04/22 15:33 Resp 18 09/04/22 15:33 BP 132/79 09/04/22 14:00 Pulse Ox 97 09/04/22 15:33 O2 Del Method Room Air 09/04/22 15:33 Weight last 48 hrs Weight 69.037 kg Physical Exam Const: COMMON NORMALS: no acute distress and patient oriented x3 Neck/C-Spine: COMMON NORMALS: no JVD Resp: COMMON NORMALS: normal respiratory effort, No retractions, No use of accessory muscles and clear to auscultation bilaterally AUSCULTATION: clear to auscultation bilaterally Cardio: COMMON NORMALS: no JVD, regular rate, regular rhythm, S1 normal heart sound present and S2 normal heart sound present RATE: regular rate RHYTHM: regular rhythm HEART SOUNDS: S1 normal heart sound present and S2 normal heart sound present GI: COMMON NORMALS: Normal to inspection, nondistended, normoactive bowel sounds present and non-tender Extremity: COMMON NORMALS: no pedal edema Neuro: COMMON NORMALS: patient oriented x3 Psych: COMMON NORMALS: mental status grossly normal Data 09/04/22 11:54 09/03/22 02:34 A&P Assessment and plan (1) Suicide attempt by multiple drug overdose: Patient presents with a suicide attempt by multiple drugs 2 of these are concerning, diltiazem and metoprolol (2) H/O supraventricular tachycardia: (3) Essential hypertension: chlorthalidone 25 mg once daily (4) Adrenal insufficiency: Does have low levels of cortisol, continue fludrocortisone (5) Suicide attempt by beta ti overdose: (6) Intentional overdose of calcium-channel ti: (7) Sinus bradycardia: resolved Plan History of hypothyroidism. 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
[2022-09-04 16:31] LABS: Anion Gap 14.5 (5-19); Blood Urea Nitrogen 14 mg/dL (6-20); Calcium 9.3 mg/dL (8.5-10.5); Carbon Dioxide 25 mmol/L (22-29); Chloride 97 mmol/L (98-107); Glucose 99 mg/dL (65-115); Osmolality Calculated 277 mOsm/kg (285-295); Potassium 3.5 mmol/L (3.5-5.1); Sodium 133 mmol/L (136-145)
[2022-09-05] MEDS: aspirin 81 mg EC Tablet PO (05:11)
[2022-09-05] MEDS: methIMAzole 5 MG Tablet 2.5 MG PO ×2 (05:11→14:02)
[2022-09-05 06:00] VITALS: BP 119/79; PULSE 86; RESP 18; TEMP 36.3; O2SAT 93
[2022-09-05] MEDS: fludrocortisone 0.1 mg Tablet PO (08:32)
[2022-09-05] MEDS: dilTIAZem ER (24HR) 180 mg Capsule PO (08:32)
[2022-09-05] MEDS: metoprolol tartrate 25 mg Tablet PO (08:33)
[2022-09-05] MEDS: ipratropium-albuterol 3 mL Neb INHALATION (08:56)
[2022-09-05] MEDS: budesonide 0.5 mg/2 mL Neb INHALATION (08:56)
[2022-09-05 08:58] VITALS: PULSE 70; RESP 18; O2SAT 97
[2022-09-05 09:57] LABS: Blood Urea Nitrogen 11 mg/dL (6-20); Calcium 8.7 mg/dL (8.5-10.5); Carbon Dioxide 26 mmol/L (22-29); Chloride 96 mmol/L (98-107); Glucose 84 mg/dL (65-115); Osmolality Calculated 277 mOsm/kg (285-295); Sodium 134 mmol/L (136-145)
[2022-09-05 10:05] LABS: Anion Gap 15.4 (5-19); Potassium 3.4 mmol/L (3.5-5.1)
[2022-09-05 14:00] VITALS: BP 137/79; PULSE 66; RESP 17; TEMP 36.6
--- NOTE | 2022-09-05 14:29 | PC.SOCIAL ---
IMM UPDATED IMM dated and initialed and copy given to patient and copy placed in chart.
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
[2022-09-05 14:41] VITALS: BP 137/79; PULSE 66; RESP 17; TEMP 36.6
--- NOTE | 2022-09-05 17:09 | P.PN_ITS ---
Subjective Subjective: Patient was seen this morning, denies any fevers, no chills, no nausea, no vomiting no lightheadedness, no dizziness Vitals/I&O/Wt Last Vital Signs Temp 97.9 F 09/05/22 14:41 Pulse 66 09/05/22 14:41 Resp 17 09/05/22 14:41 BP 137/79 09/05/22 14:41 Pulse Ox 97 09/05/22 08:58 O2 Del Method Room Air 09/05/22 14:00 Weight last 48 hrs Weight 69.037 kg Physical Exam Const: COMMON NORMALS: no acute distress and patient oriented x3 Resp: COMMON NORMALS: normal respiratory effort, No retractions, No use of accessory muscles and clear to auscultation bilaterally AUSCULTATION: clear to auscultation bilaterally Cardio: COMMON NORMALS: regular rate, regular rhythm, S1 normal heart sound present and S2 normal heart sound present RATE: regular rate RHYTHM: regular rhythm HEART SOUNDS: S1 normal heart sound present and S2 normal heart sound present GI: COMMON NORMALS: Normal to inspection, nondistended, normoactive bowel sounds present and non-tender Extremity: COMMON NORMALS: no pedal edema Neuro: COMMON NORMALS: patient oriented x3 Psych: COMMON NORMALS: mental status grossly normal Data 09/04/22 11:54 09/05/22 09:17 A&P Assessment and plan (1) Suicide attempt by multiple drug overdose: Patient presents with a suicide attempt by multiple drugs 2 of these are concerning, diltiazem and metoprolol (2) H/O supraventricular tachycardia: (3) Essential hypertension: (4) Adrenal insufficiency: Does have low levels of cortisol, continue fludrocortisone (5) Suicide attempt by beta ti overdose: (6) Intentional overdose of calcium-channel ti: (7) Sinus bradycardia: resolved Plan History of hypothyroidism. 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
== END 2022-09-05 16:45 | disposition home or self-care (01) | DRG 918 ==
LOC: ER 09-02 01:23 → ICU 09-02 01:43 → NP 09-03 13:53
PROVIDERS: Family Medicine; Admitting Provider Internal Medicine; Emergency Provider Emergency Medicine; PCP Family Medicine; Visit Provider Psychiatry & Neurology Psychiatry
DX: T46.1X2A Poisoning by calcium-channel blockers, intentional self-harm, initial encounter (principal); R45.851 Suicidal ideations; E27.40 Unspecified adrenocortical insufficiency; T44.7X2A Poisoning by beta-adrenoreceptor antagonists, intentional self-harm, initial encounter; R00.1 Bradycardia, unspecified; I48.91 Unspecified atrial fibrillation; J44.9 Chronic obstructive pulmonary disease, unspecified; I10 Essential (primary) hypertension; G65.0 Sequelae of Guillain-Barre syndrome; Z85.048 Personal history of other malignant neoplasm of rectum, rectosigmoid junction, and anus; E03.9 Hypothyroidism, unspecified; Z63.8 Other specified problems related to primary support group; F43.25 Adjustment disorder with mixed disturbance of emotions and conduct
CPT/HCPCS: 36415; 36416; 36600; 80048; 80051; 80053; 80306; 80307; 82330; 82533; 82805; 82962; 83735; 84439; 84443; 84481; 85025; 93005; 94640; 96372; 97150; 97165; 99238; 99285; J1650; J7030; J7626

== ENCOUNTER → 2023-03-23 12:24 | Outpatient (BNVA) | payer OTHER, MEDICAID, SELFPAY | PROVIDERS: PCP Family Medicine; Visit Provider Internal Medicine | DX: I47.10 Supraventricular tachycardia, unspecified (principal); I48.91 Unspecified atrial fibrillation; J44.9 Chronic obstructive pulmonary disease, unspecified; I10 Essential (primary) hypertension | CPT/HCPCS: 99213 ==

== ENCOUNTER → 2024-04-05 14:18 | Outpatient (BNVA) | payer OTHER, MEDICAID, SELFPAY | PROVIDERS: PCP Family Medicine; Visit Provider Internal Medicine | DX: I10 Essential (primary) hypertension (principal); Z86.79 Personal history of other diseases of the circulatory system; I48.91 Unspecified atrial fibrillation; J44.9 Chronic obstructive pulmonary disease, unspecified | CPT/HCPCS: 99213 ==

== ENCOUNTER 2024-04-19 12:53 | Outpatient (CLI) | payer OTHER, MEDICAID, SELFPAY ==
--- NOTE | 2024-04-19 13:15 | USCV_ITS ---
Ady Bernardo Age: 58 Gender: M : 1965 Exam Date: 04/19/2024 13:09 Ordering Phys: Scott Blanco M.D ([email or web address]) Technologist: Itz Paz Exam Location: [facility] [place] Indication: neck pain Risk Factors: Previous Vascular Surgery: Right Brachial BP: / Left Brachial BP: / Right Left Velocity (cm/s) Spectral Plaque Velocity (cm/s) Spectral Plaque Syst/Diast Broadening Syst/Diast Broadening 123.90/ Prox CCA 84.40 / 101.70/ Mid CCA 90.50 / 110.20/ Distal CCA 86.40 / 54.70/ Prox ICA 77.90 / 65.10/ Mid ICA 65.80 / 57.00/ Distal ICA 61.20 / 84.60 ECA 103.30 0.60 ICA/CCA 0.90 Antegrade Vertebral Antegrade 52.50/ 17.20 cm/s 63.30/ 16.60 cm/s Tri Subclavian Tri 17.20 85.70 FINDINGS Comparison: none available. No significant elevation of systolic or diastolic velocities. Waveforms are normal. No significant amount of calcified plaque or intimal thickening identified. CONCLUSIONS Normal carotid doppler ultrasound. Dr. Di Pena DO (Electronically Signed) Final Date: 19 April 2024 15:13 S
== END 2024-04-19 12:54 | disposition home or self-care (01) ==
PROVIDERS: PCP Family Medicine; Visit Provider Internal Medicine
DX: M54.2 Cervicalgia (principal)
CPT/HCPCS: 93880